=== PATIENT | female | born 1960 | race Caucasian/White ===

== ENCOUNTER 2025-06-04 09:16 | Inpatient (IN) | payer SELFPAY ==
[2025-06-04] VITALS (9 sets, daily range): BP systolic 100–127; BP diastolic 62–82; PULSE 95–100; RESP 18–22; TEMP 97.5–97.9; O2SAT 99–100
[~2025-06-04] VITALS: Ht 157.5 cm; Wt 102.1 kg
[2025-06-04] MEDS: IOHEXOL 350 MG/ML 100ML IJ ONE (09:46)
--- NOTE | 2025-06-04 09:50 | ED.PDOC ---
SOB-HPI HPI Comments HPI: This is a 64 year old female BIBA presenting to the ED with chief complaint of SOB. Patient reports that she has been experiencing SOB since Sunday, worsening over time. Patient relays that she started to develop this after being on a [address] EMS states patient's HR was elevated at 106 and O2 saturation was at 80% on RA, being placed on 15L O2, going up to 96%. Patient denies any chest pain, N/V, dizziness, fever, chills, or cough. Patient denies any recent surgeries, active bleeding, and notes she has normal stool color. Initial Vitals BP: 122/86 HR: 104 RR: 32 O2: 96% on 10L simple mask Temp: 98F Past Medical History: HTN, DM, GERD Past Surgical History: None Social History: Denies ETOH, smoking, and drug use. Medications: None Allergies: NKDA HPI: Poor Historian. REVIEW OF SYSTEMS: CONSTITUTIONAL: Denies acute: fever, diaphoresis, chills, HEAD: Denies acute: headache, photophobia Eyes: Denies acute: Double vision, vision loss, eye pain, eye discharge. EARS: Denies acute: tinnitus, hearing loss, ear discharge, ear pain, THROAT: Denies acute: sore throat, swelling, difficulty swallowing , pain with swallowing, change in voice. NECK: Denies acute: neck pain, neck swelling, stiff neck. HEART: Denies acute : chest pain, palpitations, LUNGS: Denies acute: wheezing, cough, hemoptysis ABDOMEN: Denies acute: abdominal pain, Nausea, Vomiting, diarrhea, melena , hematemesis, hematochezia SKIN: Denies acute: rash, redness, lesions, itchiness. EXTREMITIES: Denies acute: calf pain, numbness, tingling, weakness, denies pain in extremity. Denies acute: Low back pain. Neuro: Denies acute: focal neurological deficit, motor or sensory focal neurological deficit, tremors, seizure like activity, confusion, dizziness, change in mental status, loss of bowel or bladder function, cauda equina like symptoms. : Denies acute: dysuria, hematuria, flank pain, increase in urinary frequency. PSYCH: Denies acute: hallucination, suicidal ideation, homicidal ideation. FEMALE: Denies acute: abnormal vaginal bleeding, foul odor, unusual discharge. PHYSICAL EXAM: General: ----moderate to severe----acute distress, awake and alert. Head: normocephalic, atraumatic. Neck: supple, trachea is midline, no swelling. Throat: Normal phonation. Eyes:, no erythema, no purulent discharge, no proptosis, no icterus. Heart: regular tachycardia, no significant murmur appreciated. Lungs: apparent respiratory distress, No wheezing, no rhonchi, no crackles. No stridors Abdomen: non tender to palpation, non distended, soft, no guarding, no rebound, + bowel sounds. Obese Neuro: Awake, Alert, oriented to name, self, situation, follows commands GCS=15. Speech is normal. Skin: no petechia, no purpura, no cyanosis, non-pale, not jaundice. Lower extremities: --no - Pitting edema no deformity, no focal swelling, no calf TTP. Makes eye contact. moves all four extremities. Face: no apparent facial droop. ED COURSE: DISCLAIMER: This medical document was created using an electronic medical record system with voice recognition software and computerized dictation system. Although this document has been carefully reviewed, there might still be some phonetic and typographical errors. Occasional wrong-word or "sound-alike" substitutions may have occurred due to the inherent limitations of voice recognition software. These areas are purely typographical due to imperfections of the software programs and do not reflect any compromise in the patient's medical care. Please read the chart carefully and recognize, using context, where these substitutions have occurred. Chief Complaint: Shortness of Breath Time Seen by MD: 09:46 Reviewed notes: Medications, Allergies Information Source: Patient, Emergency Med Personnel Mode of Arrival: EMS Was a procedure done? Was a procedure done?: No Differential Dx Differential Diagnosis: Other (DDx include ACS, unstable angina, anxiety, PE, pneumothroax, neoplasm, cardiac ischemia, COPD, asthma, CHF, pleural effusion, tobacco abuse, pneumonia, hypoxia, hypercapnia, anemia., infection/sepsis., pulmonary edema. Asthma, Cardiac tamponade, infection.) X-Ray, Labs, Meds, VS Vital Signs Date Time Temp Pulse Resp B/P (MAP) Pulse Ox O2 Delivery O2 Flow Rate FiO2 06/04/25 12:00 102 25 129/89 (102) 06/04/25 12:00 101 06/04/25 11:01 Simple Mask* 10 99 06/04/25 11:00 105 27 109/76 (87) 06/04/25 10:00 97.7 105 32 129/84 (99) 97.7 06/04/25 09:48 97.7 107 34 150/59 (89) 97.7 06/04/25 09:45 Simple Mask* 10 99 06/04/25 09:22 98.0 102 32 126/88 96 98.0 06/04/25 09:21 104 Lab Test 06/04/25 10:56 06/04/25 09:32 Range/Units Prothrombin Time 11.2 10.9 9.3-11.8 sec Prothrombin Time INR 1.06 1.03 0.9-1.15 Activated Partial Thromboplast Time 21.1 L 23.1 L 24.5-34.5 SEC Troponin I High Sensitivity 198 *H 123 *H </=34 ng/L White Blood Count 15.3 H 4.4-10.8 10^3/uL Red Blood Count 5.13 4.0-5.20 10^6/uL Hemoglobin 12.1 L 12.2-16.2 g/dL Hematocrit 38.8 36.0-46.0 % Mean Corpuscular Volume 75.5 L 80.0-100.0 fL Mean Corpuscular Hemoglobin 23.5 L 28.0-32.0 pg Mean Corpuscular Hemoglobin Concent 31.2 L 32.0-36.0 g/dL Red Cell Distribution Width 16.9 H 11.8-14.3 % Platelet Count 217 140-450 10^3/uL Mean Platelet Volume 10.0 6.9-10.8 fL Neutrophils (%) (Auto) 65.9 37.0-80.0 % Lymphocytes (%) (Auto) 25.4 10.0-50.0 % Monocytes (%) (Auto) 6.8 0.0-12.0 % Eosinophils (%) (Auto) 1.3 0.0-7.0 % Basophils (%) (Auto) 0.6 0.0-2.0 % Neutrophils # (Auto) 10.1 H 1.6-8.6 10 ^3/uL Lymphocytes # (Auto) 3.9 0.4-5.4 10 ^3/uL Monocytes # (Auto) 1.0 0-1.3 10 ^3/uL Eosinophils # (Auto) 0.2 0-0.8 10 ^3/uL Basophils # (Auto) 0.1 0-0.2 10 ^3/uL Nucleated Red Blood Cells 0.0 % Sodium Level 139 136-145 mmol/L Potassium Level 3.7 3.5-5.1 mmol/L Chloride Level 106 98-107 mmol/L Carbon Dioxide Level 20 20-31 mmol/L Anion Gap 13 5-15 Blood Urea Nitrogen 14 9-23 mg/dL Creatinine 1.12 H 0.550-1.02 mg/dL Glomerular Filtration Rate Calc 56 >90 mL/min BUN/Creatinine Ratio 12.5 10.0-20.0 Serum Glucose 278 H 74-106 mg/dL Calcium Level 9.3 8.7-10.4 mg/dL Magnesium Level 1.9 1.6-2.6 mg/dL Total Bilirubin 0.5 0.2-1.0 mg/dL Aspartate Amino Transferase (AST) 25 13-40 U/L Alanine Aminotransferase (ALT) 33 7-40 U/L Alkaline Phosphatase 88 46-116 U/L B-Type Natriuretic Peptide 212.75 0-100 pg/mL Total Protein 7.1 5.7-8.2 g/dL Albumin 4.8 3.2-4.8 g/dL [place] [id number] Ph: [phone] DIAGNOSTIC IMAGING Diagnostic Imaging Report : [id number] Signed PATIENT: DON FISHMAN ACCT: [id number] UNIT: [id number] : 1960 LOC: ER ROOM / BED: / AGE / SEX: 64 / F ADM STATUS: REG ER SERVICE [id number] ORDERING PHYSICIAN: BINH COREY DO PROCEDURE(s): CTACH - CT ANGIO CHEST CONTRAST REASON: sob ORDER NUMBER(s): [id number], ACCESSION NUMBER(s): [id number] CTA Chest with intravenous contrast INDICATION: sob COMPARISON: None TECHNIQUE: Multidetector spiral CTA of the chest was performed of the chest with intravenous contrast. PULMONARY ANGIOGRAPHY PROTOCOL was utilized using a bolus- tracking technique centered on the main pulmonary artery. Axial, coronal and sagittal multiplanar and MIP reformats were performed. CONTRAST: Type of contrast: Omni 350 Contrast injected: 70 ml Radiation dose : Chest: CTDI volume is 28 mGy. Dose-length product is 1050 mGy*cm The dose indicators for CT are the volume computed Tomography (CT) dose Index (CTDIvol) and the dose Length product (DLP), and are measured in units of mGy and mGy-cm, respectively. These indicators are not patient dose, but values generated from the CT scanner acquisition factors. The report includes radiation exposure data for exposures received during this examination. Findings: Pulmonary artery: Massive bilateral pulmonary emboli. Large volume of clot. Evidence of right heart strain. Lower neck: Normal thyroid. Lungs: Mild patchy ground-glass opacities in both lungs. Atelectasis and scarring in the lung bases. Heart/Vascular Structures: Normal heart size. No pericardial effusion. Lymph Nodes: No adenopathy Pleura: No pleural effusion or significant pneumothorax. Musculoskeletal: No acute osseous abnormality. Soft tissues: Normal. Upper abdomen: Moderate size sliding-type hiatal hernia. IMPRESSION: 1. Massive bilateral pulmonary emboli. Large clot burden. Evidence of right heart strain. Clinical correlation and continued follow-up is recommended. 2. Patchy ground-glass opacities in both lungs could represent subsegmental atelectasis. Atelectasis and scarring in the lung bases. Clinical correlation and continued follow-up is recommended. 3. Moderate size sliding-type hiatal hernia. Critical Result: Pumonary Emboli Findings conveyed to the referring physician by the Radiology academic support specialist at 06/04/2025 10:39 AM, and acknowledged receipt and understanding of the findings. HS:Y ATED BY: CHEMA VILLEDA MD DICTATED DATE/TIME: 06/04/25 104 SIGNED BY: CHEMA VILLEDA MD SIGNED DATE/TIME: 06/04/25 1041 CC: X-Ray, Labs, Meds, VS Comment 1028: Spoke with interventional radiologist in person regarding the patient case and he is aware of the patient and will likely take patient to filling station laborer for clot removal. Time of 1ST Reevaluation: 10:46 Reevaluation 1ST: Unchanged Patient Education/Counseling: Diagnosis, Treatment Family Education/Counseling: No Family Present Comments MDM: patient presented with the above HPI.---respiratory distress---workup was initiated. patient was found with the above mentioned diagnosis. the following medications were ordered: please refer to order lists of meds and tests obtained by myself Dr. Corey. Patient ED course and VS have been stabilized. Patient has been reassessed in the ED and remained in a stable condition. Pertinent incidental findings were discussed with the patient and/or family. Patient/family voices understanding and is agreeable with plan. Patient has been observed in the ED adequate length of time to insure improvement/stability. Escalation of care considered: Consideration of escalation to observation or admission Patient was taken immediately to CT angiogram of the chest to rule out PE. Patient was started on anticoagulation. I discussed the case with the interventional radiologist who will take the patient to the filling station laborer for clot removal. Patient was ADMITTED to the medicine team for further evaluation and treatment of their presentation. All the reports of any imaging studies that were ordered by myself were reviewed by myself. Departure 1 Departure Time of Disposition: 10:31 Impression: Primary Impression: Acute respiratory distress Additional Impressions: Pulmonary embolus Leukocytosis Elevated troponin Disposition: ADMITTED INPATIENT Admit to: Tele Condition: Guarded Discharged With: Self Critical Care Note Critical Care Time?: Yes (90 min-critical care time only) I personally scribed for BINH COREY DO ([email or web address]) on 06/04/25 at 09:50. Electronically submitted by Irwin Lazo ([email or web address]). I personally scribed for BINH COREY DO ([email or web address]) on 06/04/25 at 10:22. Electronically submitted by Irwin Lazo ([email or web address]). I personally scribed for BINH COREY DO ([email or web address]) on 06/04/25 at 10:29. Electronically submitted by Irwin Lazo ([email or web address]). I personally scribed for BINH COREY DO ([email or web address]) on 06/04/25 at 10:32. Electronically submitted by Irwin Lazo ([email or web address]). I personally scribed for BINH COREY DO ([email or web address]) on 06/04/25 at 11:25. Electronically submitted by Irwin Lazo ([email or web address]). BINH COREY DO Jun 04, 2025 09:50
--- NOTE | 2025-06-04 09:59 | DVH ---
CHEST RADIOGRAPH Indication: sob Technique: Single frontal view of the chest was obtained COMPARISON: None FINDINGS: Lines and Tubes: None Lungs: Clear Pleura: No effusion. No pneumothorax. Cardiomediastinal contours: Unremarkable Bones: Unremarkable IMPRESSION: 1. No acute disease.
[2025-06-04 10:02] LABS: Chloride 106 mmol/L (98-107); Potassium 3.7 mmol/L (3.5-5.1); Sodium 139 mmol/L (136-145)
[2025-06-04 10:08] LABS: Calcium 9.3 mg/dL (8.7-10.4)
[2025-06-04 10:09] LABS: Anion Gap 13 (5-15); Carbon Dioxide 20 mmol/L (20-31); Hematocrit 38.8 % (36.0-46.0); Hemoglobin 12.1 g/dL (12.2-16.2); Mean Corpuscular Hemoglobin 23.5 pg (28.0-32.0); Mean Corpuscular Volume 75.5 fL (80.0-100.0); Nucleated Red Blood Cells % 0.0 %
[2025-06-04 10:13] LABS: Alkaline Phosphatase 88 U/L (46-116); Magnesium 1.9 mg/dL (1.6-2.6)
[2025-06-04 10:14] LABS: Alanine Aminotransferase 33 U/L (7-40); Albumin 4.8 g/dL (3.2-4.8)
[2025-06-04 10:16] LABS: Glucose 278 mg/dL (74-106)
[2025-06-04] MEDS ORDERED: ENOXAPARIN SOD 100 MG/1 ML SYRINGE SC ONE (10:30)
[2025-06-04 10:31] LABS: BUN/Creatinine Ratio 12.5 (10.0-20.0); Blood Urea Nitrogen 14 mg/dL (9-23); Total Protein 7.1 g/dL (5.7-8.2)
[2025-06-04 10:33] LABS: Bilirubin, Total 0.5 mg/dL (0.2-1.0)
--- NOTE | 2025-06-04 10:42 | DVH ---
CTA Chest with intravenous contrast INDICATION: sob COMPARISON: None TECHNIQUE: Multidetector spiral CTA of the chest was performed of the chest with intravenous contrast . PULMONARY ANGIOGRAPHY PROTOCOL was utilized using a bolus-tracking technique centered on the main p ulmonary artery. Axial, coronal and sagittal multiplanar and MIP reformats were performed. CONTRAST: Type of contrast: Omni 350 Contrast injected: 70 ml Radiation dose : Chest: CTDI volume is 28 mGy. Dose-length product is 1050 mGy*cm The dose indicators for CT are the volume computed Tomography (CT) dose Index (CTDIvol) and the dose Length product (DLP), and are measured in units of mGy and mGy-cm, respectively. These indicators are not patient dose, but values generated from the CT scanner acquisition factors. The report includes radiation exposure data for exposures received during this examination. Findings: Pulmonary artery: Massive bilateral pulmonary emboli. Large volume of clot. Evidence of right heart strain. Lower neck: Normal thyroid. Lungs: Mild patchy ground-glass opacities in both lungs. Atelectasis and scarring in the lung bases. Heart/Vascular Structures: Normal heart size. No pericardial effusion. Lymph Nodes: No adenopathy Pleura: No pleural effusion or significant pneumothorax. Musculoskeletal: No acute osseous abnormality. Soft tissues: Normal. Upper abdomen: Moderate size sliding-type hiatal hernia. IMPRESSION: 1. Massive bilateral pulmonary emboli. Large clot burden. Evidence of right heart strain. Clinical correlation and continued follow-up is recommended. 2. Patchy ground-glass opacities in both lungs could represent subsegmental atelectasis. Atelectasis and scarring in the lung bases. Clinical correlation and continued follow-up is recommended. 3. Moderate size sliding-type hiatal hernia. Critical Result: Pumonary Emboli Findings conveyed to the referring physician by the Radiology user support analyst supervisor at 06/04/2025 10:39 AM, a nd acknowledged receipt and understanding of the findings. HS:Y
[2025-06-04] MEDS: HEPARIN SODIUM (PORCINE) 5000 UNITS/ML 1ML VIAL IV ONE (10:52)
[2025-06-04] MEDS: cefTRIAXone 1GM/50ML D5W 50 ML IV ONE (10:52)
[2025-06-04 11:43] LABS: INR 1.03 (0.9-1.15); Partial Thromboplastin Time 23.1 SEC (24.5-34.5); Prothrombin Time 10.9 sec (9.3-11.8)
[2025-06-04 11:51] LABS: INR 1.06 (0.9-1.15); Partial Thromboplastin Time 21.1 SEC (24.5-34.5); Prothrombin Time 11.2 sec (9.3-11.8)
[2025-06-04] MEDS ORDERED: NITROGLYCERIN 0.4 MG SL TAB SL PRN ×2 (13:00→17:00)
[2025-06-04] MEDS ORDERED: ONDANSETRON HCL 4 MG/2 ML VIAL IV PRN (13:00)
[2025-06-04] MEDS ORDERED: MORPHINE SULFATE INJ 2 MG/ml SYRG IV PRN ×2 (13:00→17:00)
[2025-06-04] MEDS ORDERED: DOCUSATE SOD 100 MG CAP PO PRN (13:00)
--- NOTE | 2025-06-04 13:18 | DVHHP2 ---
History of Present Illness Reason for Visit: Shortness of the breath History of Present Illness 64-year-old female past medical history hypertension diabetes occurs no surgical history chief complaint patient states she has been short of breath since Sunday. She did state she recently went on a trip for [facility] way back to [place] she had been in the car where she was able to get up and walk some but she stated she started having shortness of the breath since Sunday her sats on room air was 80% when she arrived she was heart rate was 120 they put her on non-rebreather mask she came up to 98% on room air patient denies any history of blood clots in the past but she does have a daughter who has history of blood clots in his currently on blood thinners when evaluating patient's labs and imaging from ED heparin was given ceftriaxone Lovenox white count was 15.3 glucose was 278 otherwise CBC and CMP unremarkable troponin was positive BNP was 212th 2.75 CT angio measures bilateral PE large clot burden with right heart strain she also has patchy ground-glass infiltrates in both lungs which I will start antibiotics for pneumonia patient will be 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 We will admit to [facility] Past Medical History See HPI above Past Surgical History See HPI above Family History Reviewed, non-contributory to the management of this case. Past Social History The patient lives at home, denies smoking, alcohol or illicit drugs abuse. Review of Systems Constitutional: No: Fever, Chills, Sweats, Weakness, Malaise, Other Eyes: No: Pain, Vision change, Conjunctivae inflammation, Eyelid inflammation, Other, Redness ENT: No: Ear pain, Ear discharge, Nose pain, Nose discharge, Nose congestion, Mouth pain, Mouth swelling, Throat pain, Throat swelling, Other Respiratory: Shortness of breath, SOB with excertion; No: Cough, Dry, Wheezing, Hemoptysis, Pleuritic Pain, Sputum, Wheezing, Other Cardiovascular: No: Chest Pain, Palpitations, Orthopnea, Paroxysmal Noc. Dyspnea, Edema, Lt Headedness, Other Gastrointestinal: No: Nausea, Vomiting, Abdominal Pain, Diarrhea, Constipation, Melena, Hematochezia, Other Genitourinary: No Dysuria, No Frequency, No Incontinence, No Hematuria, No Retention, No Other Musculoskeletal: No: other, neck pain, shoulder pain, arm pain, back pain, hand pain, leg pain, foot pain Skin: No: Rash, Lesions, Jaundice, Bruising, Other Neurological: No: Weakness, Numbness, Incoordination, Change in speech, Confusion, Seizures, Other Allergies: Coded Allergies: NO KNOWN ALLERGIES (Unverified , 06/04/25) Medications Current Medications Medications Dose Ordered Sig/Luisa Route Start Time Stop Time Status Last Admin Dose Admin Ondansetron HCl 4 mg Q4HP PRN IV 06/04/25 13:00 UNV Docusate Sodium 100 mg BIDPRN PRN PO 06/04/25 13:00 UNV Morphine Sulfate 2 mg Q4HPRN PRN IV 06/04/25 13:00 UNV Nitroglycerin 0.4 mg Q5MINP PRN SL 06/04/25 13:00 UNV Heparin Sodium/ Dextrose 250 ml @ 18.81 mls/ hr [id number] IV 06/04/25 13:00 UNV Exam Vital Signs Vital Signs Date Time Temp Pulse Resp B/P (MAP) Pulse Ox O2 Delivery O2 Flow Rate FiO2 06/04/25 12:00 101 06/04/25 11:01 Simple Mask* 10 99 06/04/25 09:48 97.7 34 150/59 (89) 97.7 06/04/25 09:22 96 General Appearance: Alert, Oriented X3, Cooperative, mild distress HEENT: Atraumatic, PERRLA, EOMI, Mucous membr. moist/pink Respiratory: Clear to auscultation, Normal air movement Cardiovascular: Regular rate, Normal S1, Normal S2, No murmurs Abdominal: Normal bowel sounds, Soft, No tenderness, No hepatospenomegaly Extremities: No clubbing, No cyanosis, No edema, Normal pulses, No tenderness/swelling Skin: No rashes, No breakdown, No significant lesion Neuro: Normal gait, Normal speech, Strength at 5/5 X4 ext, Normal tone, Sensation intact, Cranial nerves 3-12 NL Psych/Mental Status: Mental status NL, Mood NL Labs/Xrays CT scan of the chest shows patchy ground-glass in both lungs patient found to have a large clot burden with right heart strain I reviewed labs, imaging CT scan abdomen pelvis, EKG and all diagnostic studies on this patient from ED records and the medical chart Chest x-ray unremarkable Labs Test 06/04/25 10:56 06/04/25 09:32 Range/Units Prothrombin Time 11.2 9.3-11.8 sec Prothrombin Time INR 1.06 0.9-1.15 Activated Partial Thromboplast Time 21.1 L 24.5-34.5 SEC Troponin I High Sensitivity 198 *H </=34 ng/L White Blood Count 15.3 H 4.4-10.8 10^3/uL Red Blood Count 5.13 4.0-5.20 10^6/uL Hemoglobin 12.1 L 12.2-16.2 g/dL Hematocrit 38.8 36.0-46.0 % Mean Corpuscular Volume 75.5 L 80.0-100.0 fL Mean Corpuscular Hemoglobin 23.5 L 28.0-32.0 pg Mean Corpuscular Hemoglobin Concent 31.2 L 32.0-36.0 g/dL Red Cell Distribution Width 16.9 H 11.8-14.3 % Platelet Count 217 140-450 10^3/uL Mean Platelet Volume 10.0 6.9-10.8 fL Neutrophils (%) (Auto) 65.9 37.0-80.0 % Lymphocytes (%) (Auto) 25.4 10.0-50.0 % Monocytes (%) (Auto) 6.8 0.0-12.0 % Eosinophils (%) (Auto) 1.3 0.0-7.0 % Basophils (%) (Auto) 0.6 0.0-2.0 % Neutrophils # (Auto) 10.1 H 1.6-8.6 10 ^3/uL Lymphocytes # (Auto) 3.9 0.4-5.4 10 ^3/uL Monocytes # (Auto) 1.0 0-1.3 10 ^3/uL Eosinophils # (Auto) 0.2 0-0.8 10 ^3/uL Basophils # (Auto) 0.1 0-0.2 10 ^3/uL Nucleated Red Blood Cells 0.0 % Sodium Level 139 136-145 mmol/L Potassium Level 3.7 3.5-5.1 mmol/L Chloride Level 106 98-107 mmol/L Carbon Dioxide Level 20 20-31 mmol/L Anion Gap 13 5-15 Blood Urea Nitrogen 14 9-23 mg/dL Creatinine 1.12 H 0.550-1.02 mg/dL Glomerular Filtration Rate Calc 56 >90 mL/min BUN/Creatinine Ratio 12.5 10.0-20.0 Serum Glucose 278 H 74-106 mg/dL Calcium Level 9.3 8.7-10.4 mg/dL Magnesium Level 1.9 1.6-2.6 mg/dL Total Bilirubin 0.5 0.2-1.0 mg/dL Aspartate Amino Transferase (AST) 25 13-40 U/L Alanine Aminotransferase (ALT) 33 7-40 U/L Alkaline Phosphatase 88 46-116 U/L B-Type Natriuretic Peptide 212.75 0-100 pg/mL Total Protein 7.1 5.7-8.2 g/dL Albumin 4.8 3.2-4.8 g/dL SEPSIS Sepsis Screen Date sepsis recognized/suspect: Jun 04, 2025 Time Sepsis recognized/suspect: 944 Recent Procedure: No On Antibiotic Therapy: No Respiratory Rate >20: Yes Heart Rate >90: Yes Temp<36 C (96.8 F) or >38.3 C: No SBP <90 or MAP <65 mmHG: No New Acute Mental Status Change: No Is the patient on CPAP, BIPAP,: No Physician Orders Char Puller (06/04/25 ) Urinalysis (06/04/25 09:28) Chest Portable (06/04/25 09:31) Electrocardigram (06/04/25 09:28) Ct Angio Chest Contrast (06/04/25 09:31) Troponin-I Hs (06/04/25 12:28) * Radiologist Consult (06/04/25 10:19) Vte Protocol Initiated (06/04/25 10:36) Heparin Per Standardized Proce (06/04/25 10:36) Discontinue All Im Injections (06/04/25 10:36) Admit (06/04/25 12:55) Allergies (06/04/25 12:55) Code Status (06/04/25 12:55) Ondansetron Hcl (Zofran) (06/04/25 13:00) Docusate Sodium Capsule (Colace Capsule) (06/04/25 13:00) Complete Blood Count (06/05/25 04:00) Comprehensive Metabolic Panel (06/05/25 04:00) Npo (Nothing By Mouth) Diet (06/04/25 Lunch) Echo 2d Mode Cardiac Dop (06/04/25 12:55) Condition: Critical (06/04/25 12:55) Maintain Bed Rest (06/04/25 12:55) Morphine Sulfate Injection (06/04/25 13:00) Nitroglycerin Sublingual (Ntrostat Subli (06/04/25 13:00) Stat Ekg For Chest Pain (06/04/25 12:55) Notify Md Of Changes From Base (06/04/25 12:55) Program Director/Morning Show Host For 24 Hours (06/04/25 12:55) Emergency Dysrhythmia Protocol (06/04/25 12:55) Rhythm Strips Once Every Shift (06/04/25 12:55) Oxygen By Nasal Cannula (06/04/25 12:55) Platelet Monitoring (06/04/25 12:55) PTPTT (06/04/25 12:55) Complete Blood Count (06/04/25 12:55) Heparin Drip/D5w 100units/Ml (06/04/25 13:00) * Cardiology Consult (06/04/25 12:55) Vital Signs Date Time Temp Pulse Resp B/P (MAP) Pulse Ox O2 Delivery O2 Flow Rate FiO2 06/04/25 12:00 101 06/04/25 11:01 Simple Mask* 10 99 06/04/25 09:48 97.7 107 34 150/59 (89) 97.7 06/04/25 09:45 Simple Mask* 10 99 06/04/25 09:22 98.0 102 32 126/88 96 98.0 06/04/25 09:21 104 Laboratory Tests Test 06/04/25 09:32 White Blood Count 15.3 10^3/uL (4.4-10.8) H Medications Medications Dose Ordered Sig/Luisa Route Start Time Stop Time Status Last Admin Dose Admin Ceftriaxone Sodium 50 ml @ 100 mls/hr ONCE ONCE IV 06/04/25 10:30 06/04/25 10:59 DC 06/04/25 10:52 100 MLS/HR Heparin Sodium (Porcine) 5,000 units ONCE ONCE IV 06/04/25 10:45 06/04/25 10:46 DC 06/04/25 10:52 5,000 UNITS Assessment/Plan Assessment/Plan acute pulmonary embolism with large clot burden with right heart strain Found on CTA of the chest pt was given dose of lovenox but Heparin protocol was ordered PTT every 6 hours Monitor for bleeding Order echo to check heart strain Follow-up results cards consult fu recs Order Doppler bilateral lower extremity rule out DVT Monitor for respiratory distress Keep sats greater than 92% cont non rebreather mask Rounding team can consider anti coag workup acute pna ordered ceftraxone and doxy for now acute luekocytosis likely from pna vs pe ordered blood cultures fu results cont ceftriaxone and doxy acute elevation in trop likley from righ heart strain for pe trend trops ordered echo fu results ordered cards consult fu results acute elevation in bnp likely from heart strain from pe monitor chronic problems htn gerds dm ISS fen/ppx heparin hl protonix no scd until dvt ruled out plan admit to [facility] for evaluation Plan discussed with: Patient My Orders Orders - INA FLANAGAN DNP Procedure Category Date Status Time Admit ADMIT 06/04/25 Transmitted 12:55 Allergies PRO 06/04/25 In Process 12:55 Code Status CODE 06/04/25 Transmitted 12:55 Ondansetron Hcl PHA 06/04/25 Logged (Zofran) 13:00 Docusate Sodium PHA 06/04/25 Logged Capsule (Colace 13:00 Complete Blood Count LAB 06/05/25 Verified 04:00 Comprehensive LAB 06/05/25 Verified Metabolic Panel 04:00 Npo (Nothing By DIET 06/04/25 Transmitted Mouth) Diet Lunch Echo 2d Mode Cardiac US 06/04/25 Logged DOP 12:55 Condition: Critical PRO 06/04/25 In Process 12:55 Maintain Bed Rest PRO 06/04/25 In Process 12:55 Morphine Sulfate PHA 06/04/25 Logged Injection 13:00 Nitroglycerin PHA 06/04/25 Logged Sublingual (Ntrostat 13:00 Stat Ekg For Chest PRO 06/04/25 In Process Pain 12:55 Notify Of Changes PRO 06/04/25 In Process From Base 12:55 Program Director/Morning Show Host For PRO 06/04/25 In Process 24 Hours 12:55 Emergency Dysrhythmia PRO 06/04/25 In Process Protocol 12:55 Rhythm Strips Once PRO 06/04/25 In Process Every Shift 12:55 Oxygen By Nasal RT 06/04/25 Transmitted Cannula 12:55 Platelet Monitoring PRO 06/04/25 In Process 12:55 PTPTT LAB 06/04/25 Logged 12:55 Complete Blood Count LAB 06/04/25 Logged 12:55 Heparin Drip/D5w PHA 06/04/25 Logged 100units/Ml 13:00 * Cardiology Consult CONS 06/04/25 Transmitted 12:55 Date of Service: Jun 04, 2025 Billing Provider: INA FLANAGAN DNP Common Visit Codes: 23610-[id number] INP/OBS CARE (HIGH), [id number] CARE 30- 74 MIN (Total critical care time: Approximately 45 minutes This critical care time included obtaining a history; examining the patient; pulse oximetry; ordering and review of studies; arranging urgent treatment with development of a management plan; evaluation of patient's response to treatment; frequent reassessment; and, discussions with other providers.) INA FLANAGAN DNP Jun 04, 2025 13:18
[2025-06-04] MEDS ORDERED: cefTRIAXone 1GM/50ML D5W 50 ML IV ONE (13:30)
[2025-06-04 13:54] LABS: INR 1.05 (0.9-1.15); Partial Thromboplastin Time 27.6 SEC (24.5-34.5); Prothrombin Time 11.1 sec (9.3-11.8)
--- NOTE | 2025-06-04 14:25 | DVH ---
Bilateral lower extremity venous duplex Clinical History: eval for dvt Comparison: None Findings: Duplex Doppler evaluation of the deep venous systems of both lower extremities from the common femora l veins to the popliteal veins including color Doppler and spectral/pulsed waveform analysis was perf ormed. RIGHT SIDE: The common femoral vein demonstrates appropriate compressibility and waveform variability. There is compressibility/patency of the great saphenous vein at the proximal thigh. The femoral vein demonstrates appropriate compressibility and waveform variability. The deep femoral vein demonstrates appropriate compressibility and waveform variability. The popliteal vein demonstrates appropriate compressibility and waveform variability. DVT seen in right lower extremity peroneal veins LEFT SIDE: The common femoral vein demonstrates appropriate compressibility and waveform variability. There is compressibility/patency of the great saphenous vein at the proximal thigh. The femoral vein demonstrates appropriate compressibility and waveform variability. The deep femoral vein demonstrates appropriate compressibility and waveform variability. The popliteal vein demonstrates appropriate compressibility and waveform variability. There is normal compressibility at the tibioperoneal trunk. IMPRESSION: DVT seen in right lower extremity peroneal veins No DVT left lower extremity. END IMPRESSION: If clinical concern/symptoms persist or worsen, short-interval follow-up study is suggested. Critical Result: DVT Findings discussed with KENN Stanford , at 06/04/2025 02:22 PM, and acknowledged receipt and understandin g of the findings. ..
[2025-06-04] MEDS: LIDOCAINE 2%HCL (LOCAL ANESTH.) INJ 20ML MDV ONE (14:27)
[2025-06-04 14:32] LABS: Hematocrit 36.9 % (36.0-46.0); Hemoglobin 11.7 g/dL (12.2-16.2); Mean Corpuscular Hemoglobin 23.7 pg (28.0-32.0); Mean Corpuscular Volume 74.7 fL (80.0-100.0); Nucleated Red Blood Cells % 0.1 %
[2025-06-04] MEDS: MIDAZOLAM HCL 2MG/2ML 2ml VIAL (1mg/ml) ONE (14:53)
[2025-06-04] MEDS: HEPARIN SODIUM (PORCINE) 5000 UNITS/ML 1ML VIAL ONE ×3 (14:53→16:04)
[2025-06-04] MEDS: fentaNYL CITRATE 100 MCG/2 ML VL ONE (14:53)
[2025-06-04] MEDS: HEPARIN 1,000 UNITS/ml 1ML VIAL ONE ×2 (15:26→15:46)
[2025-06-04] MEDS: IODIXANOL 320MG/ML 100ML BTL IV ONE (15:54)
[2025-06-04] MEDS: HEPARIN DRIP/D5W 100UNITS/ML 250 ML IV ONE (17:04)
[2025-06-04] MEDS: HEPARIN DRIP/D5W 100UNITS/ML 250 ML IV SCH (17:16)
[2025-06-04] MEDS: DOXYCYCLINE 100MG/100ML 100 ML IV ONE (17:27)
--- NOTE | 2025-06-04 17:33 | DVH ---
PROCEDURE: Pulmonary angiography and interventions Procedural Personnel Attending physician(s): Tee Chaparro Fellow physician(s): None Resident physician(s): None Advanced practice provider(s): None Pre-procedure diagnosis: Intermediate high risk pulmonary embolus Post-procedure diagnosis: Same Indication: Dyspnea Additional clinical history: None Complications: No immediate complications. IMPRESSION: Angiography of the bilateral main pulmonary arteries demonstrates mild residual clot burden involving the left upper lobe and right upper lobe segmental pulmonary arteries following large bore mechanica l thrombectomy. Plan: Right lower extremity straight x6 hours; continue therapeutic anticoagulation with plan towards bridg e to oral anticoagulation. Removal of suture mediated device on 06/05/2025. PROCEDURE SUMMARY: - Venous access with ultrasound guidance - Bilateral main pulmonary angiography - Superselective pulmonary angiography: Performed as described below - Pulmonary arterial interventions as described below - Additional procedure(s): None PROCEDURE DETAILS: Pre-procedure Consent: Informed consent for the procedure including risks, benefits and alternatives was obtained a nd time-out was performed prior to the procedure. Preparation: The site was prepared and draped using maximal sterile barrier technique including cutan eous antisepsis. Anesthesia/sedation Level of anesthesia/sedation: Moderate sedation (conscious sedation) Anesthesia/sedation administered by: Independent trained observer under attending supervision with co ntinuous monitoring of the patient s level of consciousness and physiologic status Total intra-service sedation time (minutes): 90 Access Local anesthesia was administered. The vessel was sonographically evaluated and determined to be pena nt. Real time ultrasound was used to visualize needle entry into the vessel and a permanent image was stored. A 24 hebrew sheath was placed. Vein accessed: Right common femoral vein Access technique: Micropuncture set with 21 gauge needle Pulmonary angiography and interventions The pulmonary arterial system was catheterized using 6 hebrew angled pigtail catheter, 5 hebrew multi purpose angled catheter, 035 amplatz wire, 035 glidewire advantage. Indication for angiography: Diagnostic angiography - There was no prior catheter-based angiographic s tudy available and a full diagnostic study was performed. The decision to intervene was based on the diagnostic study. Vessel catheterized: Left main pulmonary artery Findings: Mild residual clot burden of the left upper lobe segmental arteries Selective vessel catheterized: Left lower lobe pulmonary artery Findings: Intraluminal position with surrounding thrombus Vessel catheterized: Right main pulmonary artery Findings: Mild residual clot burden of the left upper lobe segmental arteries Selective vessel catheterized: Right lower lobe pulmonary artery Findings: Intraluminal position with surrounding thrombus Thrombectomy Mechanical thrombectomy location: left lower lobe, right interlobar, right truncus anterior Mechanical thrombectomy device: [id number] and [id number] Mechanical thrombectomy type: Aspiration Post-intervention angiography: Mild residual clot burden of the bilateral upper lobe segmental arteri es Pressure measurements Pressure measurements were obtained via multi-sidehole catheter. Location of pressure measurement: Main pulmonary artery - Systolic pressure (mmHg): 47 pre, 48 post - Diastolic pressure (mmHg): 24 pre, 8 post - Mean pressure (mmHg): 35 pre, 28 post Closure The sheath was removed and hemostasis was achieved. Venous closure technique: Purse string suture and manual compression Contrast Contrast agent: Visipaque 320 Contrast volume (mL): 90 Radiation Dose Fluoroscopy time (mm:ss): 32:48 Reference air kerma (mGy): 681 Kerma area product (Gy-cm2): 97.27 Additional Details Additional description of procedure: None Registry event: None/3/g Device used: None Equipment details: None Unique Device Identifiers: Not available Specimens removed: None Estimated blood loss (mL): Less than 10 Standardized report: [email or web address] Attestation Signer name: Tee Chaparro I attest that I was present for the entire procedure. I reviewed the stored images and agree with the report as written.
--- NOTE | 2025-06-04 23:35 | DVHINCON2 ---
Date of service: Jun 04, 2025 Referring Physician Connor Reason for Consultation Acute PE History of Present Illness This is a 64 year old female with a PMH of HTN, DM, GERD who presented to the ED with a complaint of worsening SOB x 6 days. Patient notes that she started to develop SOB after being on a [address] from [facility] to [place]. EMS states patient's HR was elevated at 106 and O2 saturation was at 80% on RA, being placed on 15L O2, going up to 96%. WBC 12.8, SPEECH AND LANGUAGE CLINICIAN 1.12, TROP 123 > 198 > 292. Chest x-ray shows NAD. CTA Chest revealed a massive bilateral pulmonary emboli. Large clot burden. Evidence of right heart strain, patchy ground-glass opacities in both lungs could represent subsegmental atelectasis, atelectasis and scarring in the lung bases and moderate size sliding-type hiatal hernia. Bilateral lower extremity venous duplex shows a DVT seen in right lower extremity peroneal veins. No DVT left lower extremity. Patient was admitted to the hospital. I am asked to consult on this patient. Allergies: Coded Allergies: NO KNOWN ALLERGIES (Unverified , 06/04/25) Current Medications Current Medications Medications (Trade) Dose Ordered Sig/Luisa Route PRN Reason Start Time Stop Time Status Last Admin Ondansetron HCl (Zofran) 4 mg Q4HP PRN IV NAUSEA / VOMITING 06/04/25 13:00 Docusate Sodium (Colace Capsule) 100 mg BIDPRN PRN PO FOR CONSTIPATION 06/04/25 13:00 Morphine Sulfate 2 mg Q4HPRN PRN IV SEVERE PAIN (7-10 PAIN SCALE) 06/04/25 13:00 Nitroglycerin (Ntrostat Sublingual) 0.4 mg Q5MINP PRN SL FOR CHEST PAIN 06/04/25 13:00 06/04/25 17:17 DC Heparin Sodium/ Dextrose 250 ml @ 19 mls/hr [id number] IV 06/04/25 14:00 06/04/25 17:16 Ceftriaxone Sodium 50 ml @ 100 mls/hr DAILY@09 IV 06/05/25 09:00 Doxycycline Hyclate 100 ml @ 50 mls/hr Q12H IV 06/05/25 05:30 Nitroglycerin (Ntrostat Sublingual) 0.4 mg Q5MINP PRN SL FOR CHEST PAIN 06/04/25 17:00 Morphine Sulfate 2 mg Q30M PRN IV FOR CHEST PAIN 06/04/25 17:00 Review of Systems Constitutional: No: Fever, Chills, Sweats, Weakness, Malaise, Other Eyes: No: Pain, Vision change, Conjunctivae inflammation, Eyelid inflammation, Other, Redness ENT: No: Ear pain, Ear discharge, Nose pain, Nose discharge, Nose congestion, Mouth pain, Mouth swelling, Throat pain, Throat swelling, Other Respiratory: Shortness of breath, SOB with excertion; No: Cough, Dry, Wheezing, Hemoptysis, Pleuritic Pain, Sputum, Wheezing, Other Cardiovascular: No: Chest Pain, Palpitations, Orthopnea, Paroxysmal Noc. Dyspnea, Edema, Lt Headedness, Other Gastrointestinal: No: Nausea, Vomiting, Abdominal Pain, Diarrhea, Constipation, Melena, Hematochezia, Other Genitourinary: No Dysuria, No Frequency, No Incontinence, No Hematuria, No Retention, No Other Musculoskeletal: No: other, neck pain, shoulder pain, arm pain, back pain, hand pain, leg pain, foot pain Skin: No: Rash, Lesions, Jaundice, Bruising, Other Neurological: No: Weakness, Numbness, Incoordination, Change in speech, Confusion, Seizures, Other Vital Signs Vital Signs Date Time Temp Pulse Resp B/P (MAP) Pulse Ox O2 Delivery O2 Flow Rate FiO2 06/04/25 18:53 Simple Mask* 6 50 06/04/25 18:53 97.7 98 18 127/79 (95) 100 97.7 Physical Exam GENERAL: Alert and oriented x 3. No acute distress. EYES: PERRL, EOMI. Anicteric. HENT: Moist mucous membranes. LUNGS: Decreased breath sounds. CARDIOVASCULAR: Regular rate and rhythm. ABDOMEN: Soft, nontender and nondistended. EXTREMITIES: No edema. NEUROLOGIC: No focal neurological deficits. SKIN: Warm, dry. Labs/Diagnostic Data Labs Test 06/04/25 14:03 06/04/25 13:12 06/04/25 09:32 Range/Units White Blood Count 12.8 H 4.4-10.8 10^3/uL Red Blood Count 4.94 4.0-5.20 10^6/uL Hemoglobin 11.7 L 12.2-16.2 g/dL Hematocrit 36.9 36.0-46.0 % Mean Corpuscular Volume 74.7 L 80.0-100.0 fL Mean Corpuscular Hemoglobin 23.7 L 28.0-32.0 pg Mean Corpuscular Hemoglobin Concent 31.8 L 32.0-36.0 g/dL Red Cell Distribution Width 17.0 H 11.8-14.3 % Platelet Count 201 140-450 10^3/uL Mean Platelet Volume 10.7 6.9-10.8 fL Neutrophils (%) (Auto) 86.9 H 37.0-80.0 % Lymphocytes (%) (Auto) 7.4 L 10.0-50.0 % Monocytes (%) (Auto) 4.9 0.0-12.0 % Eosinophils (%) (Auto) 0.2 0.0-7.0 % Basophils (%) (Auto) 0.6 0.0-2.0 % Neutrophils # (Auto) 11.1 H 1.6-8.6 10 ^3/uL Lymphocytes # (Auto) 1.0 0.4-5.4 10 ^3/uL Monocytes # (Auto) 0.6 0-1.3 10 ^3/uL Eosinophils # (Auto) 0 0-0.8 10 ^3/uL Basophils # (Auto) 0.1 0-0.2 10 ^3/uL Nucleated Red Blood Cells 0.1 % Prothrombin Time 11.1 9.3-11.8 sec Prothrombin Time INR 1.05 0.9-1.15 Activated Partial Thromboplast Time 27.6 24.5-34.5 SEC Troponin I High Sensitivity 292 *H </=34 ng/L Sodium Level 139 136-145 mmol/L Potassium Level 3.7 3.5-5.1 mmol/L Chloride Level 106 98-107 mmol/L Carbon Dioxide Level 20 20-31 mmol/L Anion Gap 13 5-15 Blood Urea Nitrogen 14 9-23 mg/dL Creatinine 1.12 H 0.550-1.02 mg/dL Glomerular Filtration Rate Calc 56 >90 mL/min BUN/Creatinine Ratio 12.5 10.0-20.0 Serum Glucose 278 H 74-106 mg/dL Calcium Level 9.3 8.7-10.4 mg/dL Magnesium Level 1.9 1.6-2.6 mg/dL Total Bilirubin 0.5 0.2-1.0 mg/dL Aspartate Amino Transferase (AST) 25 13-40 U/L Alanine Aminotransferase (ALT) 33 7-40 U/L Alkaline Phosphatase 88 46-116 U/L B-Type Natriuretic Peptide 212.75 0-100 pg/mL Total Protein 7.1 5.7-8.2 g/dL Albumin 4.8 3.2-4.8 g/dL Assessment Acute pulmonary embolism with large clot burden with right heart strain. RLE DVT. Pneumonia. Leukocytosis. Elevated troponin. Elevated BNP. HTN. DM. HLD. Plan/Recommendation I agree with your ongoing assessment and care of plan. IV antibiotics as ordered. Heparin drip per pharmacy. Morphine for pain management. Nitro SL. Additional plan as per the hospital course. A total of 45 minutes was spent reviewing the patient record, examining the patient, making a diagnostic and therapeutic plan, discussing this plan with medical personnel, following up on diagnostic studies and following the patient for clinical stability excluding any and all procedures. At least 50% of this time was spent in direct, [id number] contact. Plan discussed with: Patient EVELYN MULLINS MD Jun 04, 2025 21:01
[2025-06-04 23:43] LABS: INR 1.11 (0.9-1.15); Prothrombin Time 11.6 sec (9.3-11.8)
[2025-06-04 23:45] LABS: Partial Thromboplastin Time 107.5 SEC (24.5-34.5)
[2025-06-05] VITALS (8 sets, daily range): BP systolic 104–128; BP diastolic 59–72; PULSE 72–94; RESP 17–20; TEMP 97.5–98.5; O2SAT 95–100
[2025-06-05] MEDS: HEPARIN DRIP/D5W 100UNITS/ML 250 ML IV SCH (01:00)
[2025-06-05] MEDS: DOXYCYCLINE 100MG/100ML 100 ML IV SCH (06:11)
[2025-06-05 06:16] LABS: Hematocrit 31.9 % (36.0-46.0); Hemoglobin 10.1 g/dL (12.2-16.2); Mean Corpuscular Hemoglobin 23.7 pg (28.0-32.0); Mean Corpuscular Volume 75.2 fL (80.0-100.0); Nucleated Red Blood Cells % 0.0 %
[2025-06-05 06:19] LABS: Alanine Aminotransferase 23 U/L (7-40); Albumin 3.9 g/dL (3.2-4.8); Alkaline Phosphatase 72 U/L (46-116); Anion Gap 8 (5-15); BUN/Creatinine Ratio 18.8 (10.0-20.0); Blood Urea Nitrogen 19 mg/dL (9-23); Carbon Dioxide 28 mmol/L (20-31); Chloride 106 mmol/L (98-107); Potassium 4.3 mmol/L (3.5-5.1); Sodium 142 mmol/L (136-145); Total Protein 6.0 g/dL (5.7-8.2)
[2025-06-05 06:20] LABS: Bilirubin, Total 0.4 mg/dL (0.2-1.0)
[2025-06-05 06:30] LABS: Calcium 8.5 mg/dL (8.7-10.4); Glucose 178 mg/dL (74-106); INR 1.08 (0.9-1.15); Partial Thromboplastin Time 64.7 SEC (24.5-34.5); Prothrombin Time 11.4 sec (9.3-11.8)
[2025-06-05] MEDS: cefTRIAXone 1GM/50ML D5W 50 ML IV SCH (09:25)
[2025-06-05 13:57] LABS: INR 1.06 (0.9-1.15); Partial Thromboplastin Time 52.5 SEC (24.5-34.5); Prothrombin Time 11.2 sec (9.3-11.8)
[2025-06-05] MEDS: PANTOPRAZOLE 40 MG TAB PO ONE (16:12)
--- NOTE | 2025-06-05 19:37 | DVHPNRES ---
Progress Note Date Seen: Jun 05, 2025 Resident Creating Document: ALESSIA ELLISON Medical Necessity Reason Pt with a Central, PICC or Fol: No Subjective Review of Systems 64-year-old female with past medical history of hypertension, diabetes, sinusitis, plantar fasciitis hospital with chief complaint of chest pain. The pain was graded 9/10 in severity with no radiation exacerbated by exercise and relieved by resting. It was associated with shortness of breath and leg pain. She had a history of long road trips for the past few weeks and long journey flight recently. On arrival the hospital her oxygen saturation was 80% after which he was put on oxygen saturation increased to 98%. Doppler showed right lower limb DVT in the peroneal vein. CT angiography showed massive pulmonary emboli and sliding hiatal hernia. Arterial thrombectomy of the pulmonary arteries were done. Patient seen at bedside in the morning. Patient says chest pain subsided. Patient was started on warfarin because of the low cost, patient did not have insurance. Was bridged with heparin. Follow platelets PMHx:hypertension, diabetes, sinusitis, plantar fasciitis Family history: History of clotting disorder in the daughter Social history: No history of smoking alcohol or recreational drug use Allergic history: None General: patient denies fever, fatigue, weaknes, sweating, any recent changes in appetite and weight HEENT: No headaches, visiual changes, hearing loss, tinnitus, nasal congestion and discharge, and sore throat. Cardiovascular: Complaints of mild chest pain, palpitations, dyspnea on exertion, orthopnea, or claudication. Respiratory: No cough, and wheezing. Gastrointestinal: Denies nausea, vomiting, dysphagia, odynophagia, heartburn, abdominal pain, flatulence, bloating, diarrhea, constipation, change in stool, or blood in stool. Genitourinary: No dysuria, hematuria, discharge, frequency, urgency, nocturia, incontinence, and urinary retention. Endocrine: No heat or cold intolerance, polydipsia, polyuria, and polyphagia. Neurological: No dizziness, extremity weakness and numbness, tremors, gait disturbance, seizures, and memory impairment. Psychiatric: Denies depression, anxiety,or insomnia. Musculoskeletal: Mild Swelling in the right lower limb, Denies neck pain, stiffness, back pain, muscle weakness, , stiffness, or limited range of motion. Skin: No rashes, itching, skin lesion, changes in hair, nail, skin texture and breast. Hematologic/Lymphatic: Denies easy bruising, bleeding tendencies, or lymph node enlargement. Objective vital signs Vital Sign Date Time Temp Pulse Resp B/P (MAP) Pulse Ox O2 Delivery O2 Flow Rate FiO2 06/05/25 13:00 98.4 88 19 117/72 (87) 97 98.4 06/04/25 20:00 Simple Mask* 6 50 Total Intake and Output 06/04/25 06/04/25 06/05/25 15:00 23:00 07:00 Intake Total 19 ml 340 ml Balance 19 ml 340 ml medications Current Medications Medications Dose Ordered Sig/Luisa Route Start Time Stop Time Status Last Admin Dose Admin Ondansetron HCl 4 mg Q4HP PRN IV 06/04/25 13:00 Docusate Sodium 100 mg BIDPRN PRN PO 06/04/25 13:00 Morphine Sulfate 2 mg Q4HPRN PRN IV 06/04/25 13:00 Ceftriaxone Sodium 50 ml @ 100 mls/hr DAILY@09 IV 06/05/25 09:00 06/05/25 09:25 100 MLS/HR Doxycycline Hyclate 100 ml @ 50 mls/hr Q12H IV 06/05/25 05:30 06/05/25 06:11 50 MLS/HR Nitroglycerin 0.4 mg Q5MINP PRN SL 06/04/25 17:00 Morphine Sulfate 2 mg Q30M PRN IV 06/04/25 17:00 Heparin Sodium/ Dextrose 250 ml @ 16 mls/hr [id number] IV 06/05/25 01:00 06/05/25 08:19 16 MLS/HR Omeprazole 20 mg DAILY PO 06/05/25 20:00 06/08/25 19:59 UNV Examination General Appearance: Alert, Oriented X3, Cooperative, No acute distress HEENT: Atraumatic, PERRLA, EOMI, Mucous membrane moist/pink Respiratory: Clear to auscultation, Normal air movement Cardiovascular: Regular rate, Normal S1, Normal S2, No murmurs, no chest wall tenderness Abdominal: Normal bowel sounds, Soft, No tenderness, No hepatospenomegaly, No masses Extremities: No clubbing, No cyanosis, Mild tenderness & edema in b/l lower limbs, Normal pulses Skin: No rashes, No breakdown, No significant lesion Neuro: Normal gait, Normal speech, Strength at 5/5 X4 ext, Normal tone, Sensation intact, Cranial nerves 3-12 NL, Reflexes 2+ Psych/Mental Status: Mental status NL, Mood NL laboratory and microbiology Laboratory Tests 06/05/25 05:39 Test 06/05/25 05:39 Range/Units Serum Glucose 178 H 74-106 mg/dL Problem List/Assessment/Plan Problem List/Assessment/Plan Massive pulmonary embolism with large clot burden with right heart strain. CTA of the chest Heparin drip Post Arterial thrombectomy by IR RLE DVT in peroneal vein. Doppler bilateral lower extremity Essential HTN. Type 2 DM. Hyperlipidemia acute luekocytosis likely from pna vs pe on ceftriaxone and doxy acute elevation in bnp likely from heart strain from pe GERD on omeprazole plantar fascitis sinusitis Moderate size sliding-type hiatal hernia DIET: Cardiac diet DVT PROPHYLAXIS: Warfarin GI PROPHYLAXIS:: Pantoprazole CODE STATUS: Goal of care discussed for more than 18 minutes, full code DISPOSITION: Med/surge Patient's status and plan discussed with the patient. Case discussed with Dr. Lagos Plan discussed with: Patient, Daughter My Orders My Orders Orders - ALESSIA ELLISON Procedure Category Date Status Time Omeprazole-Sodium PHA 06/05/25 Logged Bicarbonate (Omeprazol 14:45 Omeprazole-Sodium PHA 06/05/25 Logged Bicarbonate (Omeprazol 20:00 Dietary Evaluation Review Comments: [facility] 2. Educated pt and family that a Cardiac diet does nt allow much cheese, she has to choose beans and rice for her protein source, accommondate her likes and dislikes, Expected Outcomes/Goals: gradual wt loss Date of Service: Jun 05, 2025 Billing Provider: KARLI LAGOS MD Common Visit Codes: [id number] INP/OBS CARE(HIGH) ALESSIA ELLISON Jun 05, 2025 15:11 KARLI LAGOS MD Jun 05, 2025 23:45
[2025-06-05 20:13] LABS: INR 1.05 (0.9-1.15); Partial Thromboplastin Time 52.1 SEC (24.5-34.5); Prothrombin Time 11.1 sec (9.3-11.8)
--- NOTE | 2025-06-05 20:24 | DVHPN2 ---
Progress Note - Dictate Date Seen: Jun 05, 2025 Medical Necessity Reason Pt with a Central, PICC or Fol: No Subjective Patient was seen and evaluated in follow up. Patient is complaining of generalized pain. Patient is on 6 L via simple mask. Patient on heparin drip. Telemetry reviewed. vital signs Vital Sign Date Time Temp Pulse Resp B/P (MAP) Pulse Ox O2 Delivery O2 Flow Rate FiO2 06/05/25 09:00 98.5 72 20 118/59 (78) 97 98.5 06/04/25 20:00 Simple Mask* 6 50 Total Intake and Output 06/04/25 06/04/25 06/05/25 15:00 23:00 07:00 Intake Total 19 ml 340 ml Balance 19 ml 340 ml medications Current Medications Medications Dose Ordered Sig/Luisa Route Start Time Stop Time Status Last Admin Dose Admin Ondansetron HCl 4 mg Q4HP PRN IV 06/04/25 13:00 Docusate Sodium 100 mg BIDPRN PRN PO 06/04/25 13:00 Morphine Sulfate 2 mg Q4HPRN PRN IV 06/04/25 13:00 Ceftriaxone Sodium 50 ml @ 100 mls/hr DAILY@09 IV 06/05/25 09:00 06/05/25 09:25 100 MLS/HR Doxycycline Hyclate 100 ml @ 50 mls/hr Q12H IV 06/05/25 05:30 06/05/25 06:11 50 MLS/HR Nitroglycerin 0.4 mg Q5MINP PRN SL 06/04/25 17:00 Morphine Sulfate 2 mg Q30M PRN IV 06/04/25 17:00 Heparin Sodium/ Dextrose 250 ml @ 16 mls/hr [id number] IV 06/05/25 01:00 06/05/25 08:19 16 MLS/HR objective GENERAL: Alert and oriented x 3. No acute distress. EYES: PERRL, EOMI. Anicteric. HENT: Moist mucous membranes. LUNGS: Decreased breath sounds. CARDIOVASCULAR: Regular rate and rhythm. ABDOMEN: Soft, nontender and nondistended. EXTREMITIES: No edema. NEUROLOGIC: No focal neurological deficits. SKIN: Warm, dry. laboratory and microbiology Laboratory Tests 06/05/25 05:39 Test 06/05/25 05:39 Range/Units Serum Glucose 178 H 74-106 mg/dL Problem List Acute pulmonary embolism with large clot burden with right heart strain. RLE DVT. Pneumonia. Leukocytosis. Elevated troponin. Elevated BNP. HTN. DM. HLD. Assessment/Plan Continued all current supportive medical care. IV antibiotics as ordered. Heparin drip per pharmacy. Morphine for pain management. Nitro SL. Additional plan as per the hospital course. Plan discussed with: Patient EVELYN MULLINS MD Jun 05, 2025 13:18
[2025-06-05] MEDS: WARFARIN SODIUM 5 MG TAB PO ONE (20:55)
[2025-06-06] VITALS (7 sets, daily range): BP systolic 112–133; BP diastolic 59–79; PULSE 80–94; RESP 15–20; TEMP 97.6–98.1; O2SAT 96–98
--- NOTE | 2025-06-06 01:15 | DVHSR ---
APPROVED REPORT EXAM: Two-dimensional and M-mode echocardiogram with Doppler and color Doppler. Blood Pressure: 128/69 mmHg INDICATION Eval for cardiac function and EF RISK FACTORS Height: 62, Weight: 231 DIMENSIONS LVDd4.4 (3.8-5.7cm)LA (2D)4.5 (1.9-4.0cm)Aortic Root3.2 (2.0-3.7cm) LVDs2.6 (2.5-4.0cm)LA (MM) (1.9-4.0cm)Aortic Cusp Exc1.7 (1.5-2.0cm) EF (%) 72.0 (55-70%)Rt. Atrium4.0 (1.9-4.0cm)Asc. Aorta cm IVSd1.5 (0.7-1.1cm)RV (D) (1.8-2.4cm) PWd1.2 (0.7-1.1cm) Mitral Valve MitralMitral Stenosis E wave0.80m/sMV Mean GR.mmHg A wave1.04m/sMV Peak GR.mmHg E/A ratio0.82D MVAcm2 DECEL [id number] 1/2 [id number] IVRTmsDop MVA3.47cm2 Aortic Valve Aortic ValveAortic Stenosis V11.35m/Truong Mean GR.12mmHg V22.41m/Truong Peak GR.23mmHg LVOT Diameter2.0 (1.8-2.4cm)Doppler AVA1.76cm2 Pulmonic Valve V21.09m/s Tricuspid Valve TR Velocity3.26m/s [id number] Other Information Technically limited study due to body habitus. Conclusion HYPERDYNAMIC LV LV EF IS 72% AND IS HIGH MODERATELY DILATED RV AND RA MODERATELY SEVERE PULMONARY HYPERTENSION RVSP IS 55 MM OF HG AND IS HIGH NORMAL VALVES AORTIC SCLEROSIS NO EFFUSION
[2025-06-06 07:16] LABS: Hematocrit 30.7 % (36.0-46.0); Hemoglobin 9.5 g/dL (12.2-16.2); Mean Corpuscular Hemoglobin 23.8 pg (28.0-32.0); Mean Corpuscular Volume 77.4 fL (80.0-100.0); Nucleated Red Blood Cells % 0.1 %
[2025-06-06 07:29] LABS: INR 1.04 (0.9-1.15); Partial Thromboplastin Time 58.6 SEC (24.5-34.5); Prothrombin Time 11.0 sec (9.3-11.8)
[2025-06-06] MEDS: PANTOPRAZOLE 40 MG TAB PO SCH (09:57)
--- NOTE | 2025-06-06 11:43 | DVHPN2 ---
Reviewed: Care Plan, H&P, Labs, Medications, Previous Orders, Radiology Changes from previous H/P or p: No Changes Eyes: No Pain, No Vision change, No Conjunctivae inflammation, No Eyelid inflammation, No Other, No Redness ENT: No Ear pain, No Ear discharge, No Nose pain, No Nose discharge, No Nose congestion, No Mouth pain, No Mouth swelling, No Throat pain, No Throat swelling, No Other Cardiovascular: No Chest Pain, No Palpitations, No Orthopnea, No Paroxysmal Noc. Dyspnea, No Edema, No Lt Headedness, No Other Respiratory: No Cough, No Dry; Shortness of breath, SOB with excertion; No Wheezing, No Hemoptysis, No Pleuritic Pain, No Sputum, No Other Gastrointestinal: No Nausea, No Vomiting, No Abdominal Pain, No Diarrhea, No Constipation, No Melena, No Hematochezia, No Other Genitourinary: No Dysuria, No Frequency, No Incontinence, No Hematuria, No Retention, No Other Musculoskeletal: No other, No neck pain, No shoulder pain, No arm pain, No back pain, No hand pain, No leg pain, No foot pain Skin: No Rash, No Lesions, No Jaundice, No Bruising, No Other Objective Vitals Vital Signs Date Time Temp Pulse Resp B/P (MAP) Pulse Ox O2 Delivery O2 Flow Rate FiO2 06/06/25 08:30 97.8 80 15 116/79 (91) 98 97.8 06/05/25 20:00 Simple Mask* 6 50 Intake/Output Intake and Output 06/06/25 07:00 Intake Total 1892 ml Balance 1892 ml Intake Oral 1700 ml IV Total 192 ml # Voids 2 Medications Current Medications Medications Dose Ordered Sig/Luisa Route Start Time Stop Time Status Last Admin Dose Admin Ondansetron HCl 4 mg Q4HP PRN IV 06/04/25 13:00 Docusate Sodium 100 mg BIDPRN PRN PO 06/04/25 13:00 Morphine Sulfate 2 mg Q4HPRN PRN IV 06/04/25 13:00 Ceftriaxone Sodium 50 ml @ 100 mls/hr DAILY@09 IV 06/05/25 09:00 06/06/25 10:00 100 MLS/HR Doxycycline Hyclate 100 ml @ 50 mls/hr Q12H IV 06/05/25 05:30 06/06/25 05:28 50 MLS/HR Nitroglycerin 0.4 mg Q5MINP PRN SL 06/04/25 17:00 Morphine Sulfate 2 mg Q30M PRN IV 06/04/25 17:00 Heparin Sodium/ Dextrose 250 ml @ 16 mls/hr [id number] IV 06/05/25 01:00 06/05/25 23:53 16 MLS/HR Pantoprazole Sodium 40 mg DAILY PO 06/06/25 10:00 06/06/25 09:57 40 MG Warfarin Sodium RX PROTOCOL PER PHARMACY PO 06/05/25 18:45 Laboratory Results Laboratory Tests 06/05/25 05:39 06/06/25 06:28 Coagulation Test 06/05/25 12:47 06/05/25 19:20 06/06/25 04:47 Prothrombin Time 11.2 sec (9.3-11.8) 11.1 sec (9.3-11.8) 11.0 sec (9.3-11.8) Prothrombin Time INR 1.06 (0.9-1.15) 1.05 (0.9-1.15) 1.04 (0.9-1.15) Activated Partial Thromboplast Time 52.5 SEC (24.5-34.5) H 52.1 SEC (24.5-34.5) H 58.6 SEC (24.5-34.5) H Labs and/or images reviewed: Labs reviewed by me, Image(s) reviewed by me Assessment/Plan Assessment/Plan Covering for resident physician Acute pulmonary embolism with large clot burden with right heart strain. Heparin Drip, transition to Coumadin, cardiology consult by Dr. Hirsch. Appreciated RLE DVT. Pneumonia. : Antibiotics Leukocytosis. Elevated troponin. Elevated BNP. HTN. DM. HLD. Time Spent 50 minutes Plan discussed with: Patient My Orders Orders - ROMÁN CAMILO MD Procedure Category Date Status Time * Pier Hand Helper CONS 06/06/25 Transmitted Consult Date of Service: Jun 06, 2025 Billing Provider: ROMÁN CAMILO MD Common Visit Codes: [id number] INP/OBS CARE(HIGH) ROMÁN CAMILO MD Jun 06, 2025 11:43
[2025-06-06] MEDS: WARFARIN SODIUM 5 MG TAB PO ONE (16:52)
--- NOTE | 2025-06-06 23:44 | DVHPN2 ---
Progress Note - Dictate Date Seen: Jun 06, 2025 Medical Necessity Reason Pt with a Central, PICC or Fol: No Subjective Patient was seen and evaluated in follow up. Patient is complaining of generalized discomfort. Patient is stable on 6 L via simple mask. HGB 9.5, HCT 30.7, PTT 58.6. Telemetry reviewed. vital signs Vital Sign Date Time Temp Pulse Resp B/P (MAP) Pulse Ox O2 Delivery O2 Flow Rate FiO2 06/06/25 08:30 97.8 80 15 116/79 (91) 98 97.8 06/05/25 20:00 Simple Mask* 6 50 Total Intake and Output 06/05/25 06/05/25 06/06/25 15:00 23:00 07:00 Intake Total 1092 ml 800 ml Balance 1092 ml 800 ml medications Current Medications Medications Dose Ordered Sig/Luisa Route Start Time Stop Time Status Last Admin Dose Admin Ondansetron HCl 4 mg Q4HP PRN IV 06/04/25 13:00 Docusate Sodium 100 mg BIDPRN PRN PO 06/04/25 13:00 Morphine Sulfate 2 mg Q4HPRN PRN IV 06/04/25 13:00 Ceftriaxone Sodium 50 ml @ 100 mls/hr DAILY@09 IV 06/05/25 09:00 06/06/25 10:00 100 MLS/HR Doxycycline Hyclate 100 ml @ 50 mls/hr Q12H IV 06/05/25 05:30 06/06/25 05:28 50 MLS/HR Nitroglycerin 0.4 mg Q5MINP PRN SL 06/04/25 17:00 Morphine Sulfate 2 mg Q30M PRN IV 06/04/25 17:00 Heparin Sodium/ Dextrose 250 ml @ 16 mls/hr [id number] IV 06/05/25 01:00 06/06/25 13:43 16 MLS/HR Pantoprazole Sodium 40 mg DAILY PO 06/06/25 10:00 06/06/25 09:57 40 MG Warfarin Sodium RX PROTOCOL PER PHARMACY PO 06/05/25 18:45 objective GENERAL: Alert and oriented x 3. No acute distress. EYES: PERRL, EOMI. Anicteric. HENT: Moist mucous membranes. LUNGS: Decreased breath sounds. CARDIOVASCULAR: Regular rate and rhythm. ABDOMEN: Soft, nontender and nondistended. EXTREMITIES: No edema. NEUROLOGIC: No focal neurological deficits. SKIN: Warm, dry. laboratory and microbiology Laboratory Tests 06/06/25 06:28 06/05/25 05:39 Test 06/05/25 05:39 Range/Units Serum Glucose 178 H 74-106 mg/dL Problem List Acute pulmonary embolism with large clot burden with right heart strain. RLE DVT. Pneumonia. Leukocytosis. Elevated troponin. Elevated BNP. HTN. DM. HLD. Assessment/Plan Continued all current supportive medical care. GI prophylactics. IV antibiotics as ordered. Heparin drip per pharmacy. Morphine for pain management. Nitro SL. Additional plan as per the hospital course. Dietary Evaluation Review Comments: [facility] Card[facility] Vegetarian [facility] 2. Educated pt and family that a Cardiac diet does nt allow much cheese, she has to choose beans and rice for her protein source, accommondate her likes and dislikes, Expected Outcomes/Goals: gradual wt loss Plan discussed with: Patient EVELYN MULLINS MD Jun 06, 2025 13:50
[2025-06-07] VITALS (8 sets, daily range): BP systolic 101–129; BP diastolic 56–81; PULSE 71–100; RESP 16–19; TEMP 97.8–98.3; O2SAT 97–100
[2025-06-07 06:56] LABS: Albumin 4.2 g/dL (3.2-4.8)
--- NOTE | 2025-06-07 10:43 | DVHPN2 ---
Reviewed: Care Plan, H&P, Labs, Medications, Previous Orders, Radiology Changes from previous H/P or p: No Changes Eyes: No Pain, No Vision change, No Conjunctivae inflammation, No Eyelid inflammation, No Other, No Redness ENT: No Ear pain, No Ear discharge, No Nose pain, No Nose discharge, No Nose congestion, No Mouth pain, No Mouth swelling, No Throat pain, No Throat swelling, No Other Cardiovascular: No Chest Pain, No Palpitations, No Orthopnea, No Paroxysmal Noc. Dyspnea, No Edema, No Lt Headedness, No Other Respiratory: No Cough, No Dry; Shortness of breath, SOB with excertion; No Wheezing, No Hemoptysis, No Pleuritic Pain, No Sputum, No Other Gastrointestinal: No Nausea, No Vomiting, No Abdominal Pain, No Diarrhea, No Constipation, No Melena, No Hematochezia, No Other Genitourinary: No Dysuria, No Frequency, No Incontinence, No Hematuria, No Retention, No Other Musculoskeletal: No other, No neck pain, No shoulder pain, No arm pain, No back pain, No hand pain, No leg pain, No foot pain Skin: No Rash, No Lesions, No Jaundice, No Bruising, No Other Objective Vitals Vital Signs Date Time Temp Pulse Resp B/P (MAP) Pulse Ox O2 Delivery O2 Flow Rate FiO2 06/07/25 09:00 98.1 71 16 111/63 (79) 100 98.1 06/07/25 08:00 Nasal Cannula* 5 40 Intake/Output Intake and Output 06/07/25 07:00 Intake Total 1952 ml Balance 1952 ml Intake Oral 1660 ml IV Total 292 ml # Voids 4 # Bowel Movements 1 Medications Current Medications Medications Dose Ordered Sig/Luisa Route Start Time Stop Time Status Last Admin Dose Admin Ondansetron HCl 4 mg Q4HP PRN IV 06/04/25 13:00 Docusate Sodium 100 mg BIDPRN PRN PO 06/04/25 13:00 Morphine Sulfate 2 mg Q4HPRN PRN IV 06/04/25 13:00 Ceftriaxone Sodium 50 ml @ 100 mls/hr DAILY@09 IV 06/05/25 09:00 06/07/25 09:12 100 MLS/HR Doxycycline Hyclate 100 ml @ 50 mls/hr Q12H IV 06/05/25 05:30 06/07/25 04:58 50 MLS/HR Nitroglycerin 0.4 mg Q5MINP PRN SL 06/04/25 17:00 Morphine Sulfate 2 mg Q30M PRN IV 06/04/25 17:00 Heparin Sodium/ Dextrose 250 ml @ 16 mls/hr [id number] IV 06/05/25 01:00 06/07/25 06:45 16 MLS/HR Pantoprazole Sodium 40 mg DAILY PO 06/06/25 10:00 06/07/25 09:11 40 MG Warfarin Sodium RX PROTOCOL PER PHARMACY PO 06/05/25 18:45 Laboratory Results Laboratory Tests 06/05/25 05:39 06/06/25 06:28 06/07/25 06:11 Chemistry Test 06/07/25 06:11 Albumin 4.2 g/dL (3.2-4.8) Labs and/or images reviewed: Labs reviewed by me, Image(s) reviewed by me Assessment/Plan Assessment/Plan Covering for resident physician Acute pulmonary embolism with large clot burden with right heart strain. Heparin Drip, transition to Coumadin, cardiology consult by Dr. Hirsch. Appreciated RLE DVT. Pneumonia. : Antibiotics Leukocytosis. Elevated troponin. Elevated BNP. HTN. DM. HLD. Time Spent 45 minutes No insurance: Social service consult Plan discussed with: Patient Date of Service: Jun 07, 2025 Billing Provider: ROMÁN CAMILO MD Common Visit Codes: [id number] INP/OBS CARE(HIGH) ROMÁN CAMILO MD Jun 07, 2025 10:43
[2025-06-07 10:53] LABS: Hematocrit 30.0 % (36.0-46.0); Hemoglobin 9.4 g/dL (12.2-16.2); Mean Corpuscular Hemoglobin 23.5 pg (28.0-32.0); Mean Corpuscular Volume 75.4 fL (80.0-100.0); Nucleated Red Blood Cells % 0.1 %
[2025-06-07 11:14] LABS: INR 1.14 (0.9-1.15); Partial Thromboplastin Time 57.1 SEC (24.5-34.5); Prothrombin Time 11.9 sec (9.3-11.8)
[2025-06-07] MEDS: WARFARIN SODIUM 5 MG TAB PO ONE (17:14)
[2025-06-07] MEDS: ACETAMINOPHEN 325 MG TAB PO PRN (22:43)
--- NOTE | 2025-06-07 23:51 | DVHPN2 ---
Progress Note - Dictate Date Seen: Jun 07, 2025 Medical Necessity Reason Pt with a Central, PICC or Fol: No Subjective Patient was seen and evaluated in follow up. Patient is complaining of generalized discomfort. Patient is now on 5 LPM NC. Patient is in sinus rhythm with bigeminal PAC's. HGB 9.4, HCT 30. Telemetry reviewed. vital signs Vital Sign Date Time Temp Pulse Resp B/P (MAP) Pulse Ox O2 Delivery O2 Flow Rate FiO2 06/07/25 09:00 98.1 71 16 111/63 (79) 100 98.1 06/07/25 08:00 Nasal Cannula* 5 40 Total Intake and Output 06/06/25 06/06/25 06/07/25 15:00 23:00 07:00 Intake Total 520 ml 732 ml 700 ml Balance 520 ml 732 ml 700 ml medications Current Medications Medications Dose Ordered Sig/Luisa Route Start Time Stop Time Status Last Admin Dose Admin Ondansetron HCl 4 mg Q4HP PRN IV 06/04/25 13:00 Docusate Sodium 100 mg BIDPRN PRN PO 06/04/25 13:00 Morphine Sulfate 2 mg Q4HPRN PRN IV 06/04/25 13:00 Ceftriaxone Sodium 50 ml @ 100 mls/hr DAILY@09 IV 06/05/25 09:00 06/07/25 09:12 100 MLS/HR Doxycycline Hyclate 100 ml @ 50 mls/hr Q12H IV 06/05/25 05:30 06/07/25 04:58 50 MLS/HR Nitroglycerin 0.4 mg Q5MINP PRN SL 06/04/25 17:00 Morphine Sulfate 2 mg Q30M PRN IV 06/04/25 17:00 Heparin Sodium/ Dextrose 250 ml @ 16 mls/hr [id number] IV 06/05/25 01:00 06/07/25 06:45 16 MLS/HR Pantoprazole Sodium 40 mg DAILY PO 06/06/25 10:00 06/07/25 09:11 40 MG Warfarin Sodium RX PROTOCOL PER PHARMACY PO 06/05/25 18:45 objective GENERAL: Alert and oriented x 3. No acute distress. EYES: PERRL, EOMI. Anicteric. HENT: Moist mucous membranes. LUNGS: Decreased breath sounds. CARDIOVASCULAR: Regular rate and rhythm. ABDOMEN: Soft, nontender and nondistended. EXTREMITIES: No edema. NEUROLOGIC: No focal neurological deficits. SKIN: Warm, dry. laboratory and microbiology Laboratory Tests 06/07/25 10:31 06/07/25 06:11 06/05/25 05:39 Test 06/05/25 05:39 Range/Units Serum Glucose 178 H 74-106 mg/dL Problem List Acute pulmonary embolism with large clot burden with right heart strain. RLE DVT. Pneumonia. Leukocytosis. Elevated troponin. Elevated BNP. HTN. DM. HLD. Assessment/Plan Continued all current supportive medical care. GI prophylactics. IV antibiotics as ordered. Heparin drip per pharmacy. Morphine for pain management. Nitro SL. Additional plan as per the hospital course. Dietary Evaluation Review Comments: [facility] 2. Educated pt and family that a Cardiac diet does nt allow much cheese, she has to choose beans and rice for her protein source, accommondate her likes and dislikes, Expected Outcomes/Goals: gradual wt loss Plan discussed with: Patient EVELYN MULLINS MD Jun 07, 2025 14:24
[2025-06-08] VITALS (7 sets, daily range): BP systolic 110–127; BP diastolic 54–71; PULSE 69–91; RESP 18–20; TEMP 97.6–98.4; O2SAT 90–99
[2025-06-08 08:12] LABS: INR 1.25 (0.9-1.15); Nucleated Red Blood Cells % 0.1 %; Prothrombin Time 13.0 sec (9.3-11.8)
[2025-06-08 08:15] LABS: Hematocrit 30.7 % (36.0-46.0); Hemoglobin 9.4 g/dL (12.2-16.2); Mean Corpuscular Hemoglobin 23.3 pg (28.0-32.0); Mean Corpuscular Volume 76.1 fL (80.0-100.0)
[2025-06-08 11:26] LABS: Prothrombin Time 13.0 sec (9.3-11.8)
[2025-06-08 11:27] LABS: INR 1.25 (0.9-1.15)
[2025-06-08 11:28] LABS: Partial Thromboplastin Time 85.2 SEC (24.5-34.5)
--- NOTE | 2025-06-08 11:55 | CONS ---
Pharmacy Clinical Information: HEPARIN DRIP, PULMONARY EMBOLISM PROTOCOL @0949 APTT 85.2 - NO BOLUS, DECREASE RATE TO 1400 UNITS/HR NEXT APTT DRAW SCHEDULED @1800 PER RX PROTOCOL CONFIRMED AND READ BACK WITH RN SHERRY MILLER [facility] RESIDENT Jun 08, 2025 11:55
[2025-06-08] MEDS: HEPARIN DRIP/D5W 100UNITS/ML 250 ML IV SCH ×2 (13:54→20:06)
--- NOTE | 2025-06-08 15:53 | DVHPNRES ---
Progress Note Date Seen: Jun 08, 2025 Resident Creating Document: ALESSIA ELLISON Medical Necessity Reason Pt with a Central, PICC or Fol: No Subjective Review of Systems Patient seen at the bedside. Patient is symptomatically better. INR - 1.25. Waiting for therapeutic range. Home oxygen evaluation pending Objective vital signs Vital Sign Date Time Temp Pulse Resp B/P (MAP) Pulse Ox O2 Delivery O2 Flow Rate FiO2 06/08/25 13:00 97.7 87 20 115/54 (74) 98 97.7 06/08/25 08:00 Nasal Cannula* 5 40 Total Intake and Output 06/07/25 06/07/25 06/08/25 15:00 23:00 07:00 Intake Total 1030 ml Balance 1030 ml medications Current Medications Medications Dose Ordered Sig/Luisa Route Start Time Stop Time Status Last Admin Dose Admin Ondansetron HCl 4 mg Q4HP PRN IV 06/04/25 13:00 Docusate Sodium 100 mg BIDPRN PRN PO 06/04/25 13:00 Morphine Sulfate 2 mg Q4HPRN PRN IV 06/04/25 13:00 Ceftriaxone Sodium 50 ml @ 100 mls/hr DAILY@09 IV 06/05/25 09:00 06/08/25 11:23 100 MLS/HR Doxycycline Hyclate 100 ml @ 50 mls/hr Q12H IV 06/05/25 05:30 06/08/25 05:31 50 MLS/HR Nitroglycerin 0.4 mg Q5MINP PRN SL 06/04/25 17:00 Morphine Sulfate 2 mg Q30M PRN IV 06/04/25 17:00 Pantoprazole Sodium 40 mg DAILY PO 06/06/25 10:00 06/08/25 08:46 40 MG Warfarin Sodium RX PROTOCOL PER PHARMACY PO 06/05/25 18:45 Acetaminophen 650 mg Q6HP PRN PO 06/07/25 22:30 06/08/25 11:20 650 MG Heparin Sodium/ Dextrose 250 ml @ 14 mls/hr [id number] IV 06/08/25 12:00 06/08/25 13:54 14 MLS/HR Examination General: patient denies fever, fatigue, weaknes, sweating, any recent changes in appetite and weight HEENT: No headaches, visiual changes, hearing loss, tinnitus, nasal congestion and discharge, and sore throat. Cardiovascular: Complaints of mild chest pain, palpitations, dyspnea on exertion, orthopnea, or claudication. Respiratory: No cough, and wheezing. Gastrointestinal: Denies nausea, vomiting, dysphagia, odynophagia, heartburn, abdominal pain, flatulence, bloating, diarrhea, constipation, change in stool, or blood in stool. Genitourinary: No dysuria, hematuria, discharge, frequency, urgency, nocturia, incontinence, and urinary retention. Endocrine: No heat or cold intolerance, polydipsia, polyuria, and polyphagia. Neurological: No dizziness, extremity weakness and numbness, tremors, gait disturbance, seizures, and memory impairment. Psychiatric: Denies depression, anxiety,or insomnia. Musculoskeletal: Mild Swelling in the right lower limb, Denies neck pain, stiffness, back pain, muscle weakness, , stiffness, or limited range of motion. Skin: No rashes, itching, skin lesion, changes in hair, nail, skin texture and breast. Hematologic/Lymphatic: Denies easy bruising, bleeding tendencies, or lymph node enlargement. laboratory and microbiology Laboratory Tests 06/08/25 06:04 06/07/25 06:11 06/05/25 05:39 Test 06/05/25 05:39 Range/Units Serum Glucose 178 H 74-106 mg/dL Problem List/Assessment/Plan Problem List/Assessment/Plan Massive pulmonary embolism with large clot burden with right heart strain. CTA of the chest Heparin drip Post Arterial thrombectomy by IR RLE DVT in peroneal vein. Doppler bilateral lower extremity Essential HTN. Type 2 DM. Hyperlipidemia acute luekocytosis likely from pna vs pe on ceftriaxone and doxy acute elevation in bnp likely from heart strain from pe GERD on omeprazole plantar fascitis sinusitis Moderate size sliding-type hiatal hernia DIET: Cardiac diet DVT PROPHYLAXIS: Warfarin GI PROPHYLAXIS:: Pantoprazole CODE STATUS: Goal of care discussed for more than 19 minutes, full code DISPOSITION: Med/surge Patient's status and plan discussed with the patient. Case discussed with Dr. Lagos Plan discussed with: Patient Dietary Evaluation Review Comments: [facility]. [facility] 2. Educated pt and family that a Cardiac diet does nt allow much cheese, she has to choose beans and rice for her protein source, accommondate her likes and dislikes, Expected Outcomes/Goals: gradual wt loss Date of Service: Jun 08, 2025 Billing Provider: KARLI LAGOS MD Common Visit Codes: [id number] INP/OBS CARE(HIGH) ALESSIA ELLISON RESIDENT Jun 08, 2025 15:53 KARLI LAGOS MD Jun 10, 2025 22:47
[2025-06-08] MEDS: WARFARIN SODIUM 2.5 MG TAB PO ONE (17:13)
[2025-06-08 18:47] LABS: INR 1.24 (0.9-1.15); Partial Thromboplastin Time 48.1 SEC (24.5-34.5); Prothrombin Time 12.9 sec (9.3-11.8)
--- NOTE | 2025-06-08 23:50 | DVHPN2 ---
Progress Note - Dictate Date Seen: Jun 08, 2025 Medical Necessity Reason Pt with a Central, PICC or Fol: No Subjective Patient was seen and evaluated in follow up. Patient is on 4 LPM NC. Patient is symptomatically better. HGB 9.4, HCT 30.7. INR - 1.25. Waiting for therapeutic range. Telemetry reviewed. vital signs Vital Sign Date Time Temp Pulse Resp B/P (MAP) Pulse Ox O2 Delivery O2 Flow Rate FiO2 06/08/25 21:00 98.4 81 18 127/71 (89) 99 98.4 06/08/25 20:00 Nasal Cannula* 4 36 Total Intake and Output 06/07/25 06/07/25 06/08/25 15:00 23:00 07:00 Intake Total 1030 ml Balance 1030 ml medications Current Medications Medications Dose Ordered Sig/Luisa Route Start Time Stop Time Status Last Admin Dose Admin Ondansetron HCl 4 mg Q4HP PRN IV 06/04/25 13:00 Docusate Sodium 100 mg BIDPRN PRN PO 06/04/25 13:00 Morphine Sulfate 2 mg Q4HPRN PRN IV 06/04/25 13:00 Ceftriaxone Sodium 50 ml @ 100 mls/hr DAILY@09 IV 06/05/25 09:00 06/08/25 11:23 100 MLS/HR Doxycycline Hyclate 100 ml @ 50 mls/hr Q12H IV 06/05/25 05:30 06/08/25 16:00 50 MLS/HR Nitroglycerin 0.4 mg Q5MINP PRN SL 06/04/25 17:00 Morphine Sulfate 2 mg Q30M PRN IV 06/04/25 17:00 Pantoprazole Sodium 40 mg DAILY PO 06/06/25 10:00 06/08/25 08:46 40 MG Warfarin Sodium RX PROTOCOL PER PHARMACY PO 06/05/25 18:45 Acetaminophen 650 mg Q6HP PRN PO 06/07/25 22:30 06/08/25 20:05 650 MG Heparin Sodium/ Dextrose 250 ml @ 16 mls/hr [id number] IV 06/08/25 20:00 06/08/25 20:06 16 MLS/HR objective GENERAL: Alert and oriented x 3. No acute distress. EYES: PERRL, EOMI. Anicteric. HENT: Moist mucous membranes. LUNGS: Decreased breath sounds. CARDIOVASCULAR: Regular rate and rhythm. ABDOMEN: Soft, nontender and nondistended. EXTREMITIES: No edema. NEUROLOGIC: No focal neurological deficits. SKIN: Warm, dry. laboratory and microbiology Laboratory Tests 06/08/25 06:04 06/07/25 06:11 06/05/25 05:39 Test 06/05/25 05:39 Range/Units Serum Glucose 178 H 74-106 mg/dL Problem List Acute pulmonary embolism with large clot burden with right heart strain. RLE DVT. Pneumonia. Leukocytosis. Elevated troponin. Elevated BNP. HTN. DM. HLD. Assessment/Plan Continued all current supportive medical care. IV antibiotics as ordered. Heparin drip per pharmacy. Morphine for pain management. GI prophylactics. Nitro SL. Additional plan as per the hospital course. Dietary Evaluation Review Comments: 1. [facility] Cardiac Vegetarian diet 2. Educated pt and family that a Cardiac diet does nt allow much cheese, she has to choose beans and rice for her protein source, accommondate her likes and dislikes, Expected Outcomes/Goals: gradual wt loss Plan discussed with: Patient EVELYN MULLINS MD Jun 08, 2025 23:50
[2025-06-09] VITALS (8 sets, daily range): BP systolic 111–149; BP diastolic 49–79; PULSE 75–87; RESP 17–20; TEMP 97.3–98.3; O2SAT 81–100
[2025-06-09 02:26] LABS: Hematocrit 27.0 % (36.0-46.0); Hemoglobin 8.4 g/dL (12.2-16.2); Nucleated Red Blood Cells % 0.1 %
[2025-06-09 02:27] LABS: Mean Corpuscular Hemoglobin 23.7 pg (28.0-32.0); Mean Corpuscular Volume 75.9 fL (80.0-100.0)
[2025-06-09 10:25] LABS: INR 1.42 (0.9-1.15); Partial Thromboplastin Time 57.3 SEC (24.5-34.5); Prothrombin Time 14.5 sec (9.3-11.8)
--- NOTE | 2025-06-09 11:11 | CONS ---
Pharmacy Clinical Information: HEPARIN DRIP, PULMONARY EMBOLISM PROTOCOL @0930 APTT 57.3 - NO BOLUS, NO CHANGE NEXT APTT DRAW SCHEDULED @1630 PER RX PROTOCOL CONFIRMED AND READ BACK WITH RN DENIS LUND PHARMACIST Jun 09, 2025 11:11
[2025-06-09 14:59] LABS: Base Excess 1.7 mmol/L (-2.0-3.0)
[2025-06-09 16:14] LABS: INR 1.45 (0.9-1.15); Partial Thromboplastin Time 70.0 SEC (24.5-34.5); Prothrombin Time 14.8 sec (9.3-11.8)
--- NOTE | 2025-06-09 16:54 | CONS ---
Pharmacy Clinical Information: HEPARIN DRIP, PULMONARY EMBOLISM PROTOCOL @1526 APTT 70.0 - NO BOLUS, NO CHANGE NEXT APTT DRAW SCHEDULED @0500 PER RX PROTOCOL CONFIRMED AND READ BACK WITH RN DENIS LUND PHARMACIST Jun 09, 2025 16:54
[2025-06-09] MEDS: WARFARIN SODIUM 5 MG TAB PO ONE (16:55)
--- NOTE | 2025-06-09 18:57 | DVHPNRES ---
Progress Note Date Seen: Jun 09, 2025 Resident Creating Document: ALESSIA ELLISON Medical Necessity Reason Pt with a Central, PICC or Fol: No Subjective Review of Systems Patient seen at bedside. Tried taking ABG from the patient yesterday but unable to. We will try again today. Waiting for INR to be in therapeutic range. Objective vital signs Vital Sign Date Time Temp Pulse Resp B/P (MAP) Pulse Ox O2 Delivery O2 Flow Rate FiO2 06/09/25 17:00 98.2 85 20 149/79 (102) 81 98.2 06/08/25 20:00 Nasal Cannula* 4 36 Total Intake and Output 06/08/25 06/08/25 06/09/25 15:00 23:00 07:00 Intake Total 1050 ml 800 ml Balance 1050 ml 800 ml medications Current Medications Medications Dose Ordered Sig/Luisa Route Start Time Stop Time Status Last Admin Dose Admin Ondansetron HCl 4 mg Q4HP PRN IV 06/04/25 13:00 Docusate Sodium 100 mg BIDPRN PRN PO 06/04/25 13:00 Morphine Sulfate 2 mg Q4HPRN PRN IV 06/04/25 13:00 Ceftriaxone Sodium 50 ml @ 100 mls/hr DAILY@09 IV 06/05/25 09:00 06/09/25 11:11 100 MLS/HR Doxycycline Hyclate 100 ml @ 50 mls/hr Q12H IV 06/05/25 05:30 06/09/25 16:40 50 MLS/HR Nitroglycerin 0.4 mg Q5MINP PRN SL 06/04/25 17:00 Morphine Sulfate 2 mg Q30M PRN IV 06/04/25 17:00 Pantoprazole Sodium 40 mg DAILY PO 06/06/25 10:00 06/09/25 11:11 40 MG Warfarin Sodium RX PROTOCOL PER PHARMACY PO 06/05/25 18:45 Acetaminophen 650 mg Q6HP PRN PO 06/07/25 22:30 06/09/25 16:40 650 MG Heparin Sodium/ Dextrose 250 ml @ 16 mls/hr [id number] IV 06/08/25 20:00 06/09/25 11:15 16 MLS/HR Examination General: patient denies fever, fatigue, weaknes, sweating, any recent changes in appetite and weight HEENT: No headaches, visiual changes, hearing loss, tinnitus, nasal congestion and discharge, and sore throat. Cardiovascular: Complaints of mild chest pain, palpitations, dyspnea on exertion, orthopnea, or claudication. Respiratory: No cough, and wheezing. Gastrointestinal: Denies nausea, vomiting, dysphagia, odynophagia, heartburn, abdominal pain, flatulence, bloating, diarrhea, constipation, change in stool, or blood in stool. Genitourinary: No dysuria, hematuria, discharge, frequency, urgency, nocturia, incontinence, and urinary retention. Endocrine: No heat or cold intolerance, polydipsia, polyuria, and polyphagia. Neurological: No dizziness, extremity weakness and numbness, tremors, gait disturbance, seizures, and memory impairment. Psychiatric: Denies depression, anxiety,or insomnia. Musculoskeletal: Mild Swelling in the right lower limb, Denies neck pain, stiffness, back pain, muscle weakness, , stiffness, or limited range of motion. Skin: No rashes, itching, skin lesion, changes in hair, nail, skin texture and breast. Hematologic/Lymphatic: Denies easy bruising, bleeding tendencies, or lymph node enlargement. laboratory and microbiology Laboratory Tests 06/09/25 02:01 06/07/25 06:11 06/05/25 05:39 Test 06/05/25 05:39 Range/Units Serum Glucose 178 H 74-106 mg/dL Problem List/Assessment/Plan Problem List/Assessment/Plan Massive pulmonary embolism with large clot burden with right heart strain. CTA of the chest Heparin drip Post Arterial thrombectomy by IR RLE DVT in peroneal vein. Doppler bilateral lower extremity Essential HTN. Type 2 DM. Hyperlipidemia acute luekocytosis likely from pna vs pe on ceftriaxone and doxy acute elevation in bnp likely from heart strain from pe GERD on omeprazole plantar fascitis sinusitis Moderate size sliding-type hiatal hernia DIET: Cardiac diet DVT PROPHYLAXIS: Warfarin GI PROPHYLAXIS:: Pantoprazole CODE STATUS: Goal of care discussed for more than 23 minutes, full code DISPOSITION: Med/surge Patient's status and plan discussed with the patient. Case discussed with Dr. Bakari Deluna discussed with: Patient My Orders My Orders Orders - ALESSIA ELLISON RESIDENT Procedure Category Date Status Time Order Routine Aptt PRO 06/09/25 In Process 08:24 Comprehensive LAB 06/10/25 Verified Metabolic Panel 04:00 Dietary Evaluation Review Comments: 1. [facility]-45 Cardiac Vegetarian diet 2. Educated pt and family that a Cardiac diet does nt allow much cheese, she has to choose beans and rice for her protein source, accommondate her likes and dislikes, Expected Outcomes/Goals: gradual wt loss Date of Service: Jun 09, 2025 Billing Provider: KARLI LAGOS MD Common Visit Codes: [id number] INP/OBS CARE(HIGH) ALESSIA ELLISON RESIDENT Jun 09, 2025 18:56 KARLI LAGOS MD Jun 10, 2025 23:12
--- NOTE | 2025-06-09 23:03 | DVHPN2 ---
Progress Note - Dictate Date Seen: Jun 09, 2025 Medical Necessity Reason Pt with a Central, PICC or Fol: No Subjective Patient was seen and evaluated in follow up. Patient transitioned to room air this evening, HGB 8.4, HCT 27. Patient on heparin drip. Waiting for INR to be in therapeutic range. Telemetry reviewed. vital signs Vital Sign Date Time Temp Pulse Resp B/P (MAP) Pulse Ox O2 Delivery O2 Flow Rate FiO2 06/09/25 20:00 87 06/09/25 20:00 20 94 Room Air* 0 21 06/09/25 17:00 98.2 149/79 (102) 98.2 Total Intake and Output 06/08/25 06/08/25 06/09/25 14:59 22:59 06:59 Intake Total 1050 ml 800 ml Balance 1050 ml 800 ml medications Current Medications Medications Dose Ordered Sig/Luisa Route Start Time Stop Time Status Last Admin Dose Admin Ondansetron HCl 4 mg Q4HP PRN IV 06/04/25 13:00 Docusate Sodium 100 mg BIDPRN PRN PO 06/04/25 13:00 Morphine Sulfate 2 mg Q4HPRN PRN IV 06/04/25 13:00 Ceftriaxone Sodium 50 ml @ 100 mls/hr DAILY@09 IV 06/05/25 09:00 06/09/25 11:11 100 MLS/HR Doxycycline Hyclate 100 ml @ 50 mls/hr Q12H IV 06/05/25 05:30 06/09/25 16:40 50 MLS/HR Nitroglycerin 0.4 mg Q5MINP PRN SL 06/04/25 17:00 Morphine Sulfate 2 mg Q30M PRN IV 06/04/25 17:00 Pantoprazole Sodium 40 mg DAILY PO 06/06/25 10:00 06/09/25 11:11 40 MG Warfarin Sodium RX PROTOCOL PER PHARMACY PO 06/05/25 18:45 Acetaminophen 650 mg Q6HP PRN PO 06/07/25 22:30 06/09/25 16:40 650 MG Heparin Sodium/ Dextrose 250 ml @ 16 mls/hr [id number] IV 06/08/25 20:00 06/09/25 11:15 16 MLS/HR objective GENERAL: Alert and oriented x 3. No acute distress. EYES: PERRL, EOMI. Anicteric. HENT: Moist mucous membranes. LUNGS: Decreased breath sounds. CARDIOVASCULAR: Regular rate and rhythm. ABDOMEN: Soft, nontender and nondistended. EXTREMITIES: No edema. NEUROLOGIC: No focal neurological deficits. SKIN: Warm, dry. laboratory and microbiology Laboratory Tests 06/09/25 02:01 06/07/25 06:11 06/05/25 05:39 Test 06/05/25 05:39 Range/Units Serum Glucose 178 H 74-106 mg/dL Problem List Acute pulmonary embolism with large clot burden with right heart strain. RLE DVT. Pneumonia. Leukocytosis. Elevated troponin. Elevated BNP. HTN. DM. HLD. Assessment/Plan Continued all current supportive medical care. IV antibiotics as ordered. Heparin drip per pharmacy. Morphine for pain management. GI prophylactics. Nitro SL. Additional plan as per the hospital course. Dietary Evaluation Review Comments: [facility]. [facility] Cardiac Vegetarian [facility] 2. Educated pt and family that a Cardiac diet does nt allow much cheese, she has to choose beans and rice for her protein source, accommondate her likes and dislikes, Expected Outcomes/Goals: gradual wt loss Plan discussed with: Patient EVELYN MULLINS MD Jun 09, 2025 23:03
[2025-06-10] VITALS (8 sets, daily range): BP systolic 114–137; BP diastolic 59–87; PULSE 68–88; RESP 17–20; TEMP 97.6–98.1; O2SAT 93–99
[2025-06-10 06:08] LABS: Hemoglobin 8.7 g/dL (12.2-16.2); Nucleated Red Blood Cells % 0.0 %
[2025-06-10 06:11] LABS: Hematocrit 27.8 % (36.0-46.0); Mean Corpuscular Hemoglobin 23.6 pg (28.0-32.0); Mean Corpuscular Volume 75.1 fL (80.0-100.0)
[2025-06-10 06:48] LABS: Alanine Aminotransferase 23 U/L (7-40); Albumin 4.1 g/dL (3.2-4.8); Alkaline Phosphatase 73 U/L (46-116); Anion Gap 10 (5-15); BUN/Creatinine Ratio 10.6 (10.0-20.0); Blood Urea Nitrogen 10 mg/dL (9-23); Calcium 9.3 mg/dL (8.7-10.4); Carbon Dioxide 29 mmol/L (20-31); Chloride 103 mmol/L (98-107); Potassium 3.9 mmol/L (3.5-5.1); Sodium 142 mmol/L (136-145); Total Protein 6.3 g/dL (5.7-8.2)
[2025-06-10 07:00] LABS: Bilirubin, Total 0.2 mg/dL (0.2-1.0); Glucose 163 mg/dL (74-106)
[2025-06-10 07:04] LABS: INR 1.68 (0.9-1.15); Prothrombin Time 16.9 sec (9.3-11.8)
[2025-06-10 07:10] LABS: Partial Thromboplastin Time 101.2 SEC (24.5-34.5)
--- NOTE | 2025-06-10 09:22 | CONS ---
Pharmacy Clinical Information: HEPARIN WAS ALREADY HELD 1 HOUR FROM 0730 TO 0830 DECREASED HEPARIN RATE FROM 16 ML/HR TO 13 ML/HR OR 1300 UNITS/HR SINCE APTT = 101.2 @0545 06/10 PER RX PROTOCOL. NEXT APTT LIAM 6 HOURS FROM START OF NEW HEP RATE 13 ML/HR AND BARBARA HAWK AWARE AND REPEATED BACK THE ORDER DOROTA KELLOGG PHARMACIST Jun 10, 2025 09:22
[2025-06-10] MEDS: HEPARIN DRIP/D5W 100UNITS/ML 250 ML IV SCH (09:30)
[2025-06-10 16:39] LABS: INR 1.76 (0.9-1.15); Partial Thromboplastin Time 55.2 SEC (24.5-34.5); Prothrombin Time 17.6 sec (9.3-11.8)
--- NOTE | 2025-06-10 16:57 | DVHPNRES ---
Progress Note Date Seen: Jun 10, 2025 Resident Creating Document: ALESSIA ELLISON Medical Necessity Reason Pt with a Central, PICC or Fol: No Subjective Review of Systems Patient seen at bedside. INR today 1.68. We are waiting for INR to be in therapeutic range. Objective vital signs Vital Sign Date Time Temp Pulse Resp B/P (MAP) Pulse Ox O2 Delivery O2 Flow Rate FiO2 06/10/25 13:24 97.9 77 18 137/72 (93) 97 97.9 06/10/25 08:00 Nasal Cannula* 4 36 Total Intake and Output 06/09/25 06/09/25 06/10/25 15:00 23:00 07:00 Intake Total 125 ml 1098 ml 800 ml Balance 125 ml 1098 ml 800 ml medications Current Medications Medications Dose Ordered Sig/Luisa Route Start Time Stop Time Status Last Admin Dose Admin Ondansetron HCl 4 mg Q4HP PRN IV 06/04/25 13:00 Docusate Sodium 100 mg BIDPRN PRN PO 06/04/25 13:00 Morphine Sulfate 2 mg Q4HPRN PRN IV 06/04/25 13:00 Ceftriaxone Sodium 50 ml @ 100 mls/hr DAILY@09 IV 06/05/25 09:00 06/10/25 09:06 100 MLS/HR Doxycycline Hyclate 100 ml @ 50 mls/hr Q12H IV 06/05/25 05:30 06/10/25 05:06 50 MLS/HR Nitroglycerin 0.4 mg Q5MINP PRN SL 06/04/25 17:00 Morphine Sulfate 2 mg Q30M PRN IV 06/04/25 17:00 Pantoprazole Sodium 40 mg DAILY PO 06/06/25 10:00 06/10/25 09:06 40 MG Warfarin Sodium RX PROTOCOL PER PHARMACY PO 06/05/25 18:45 Acetaminophen 650 mg Q6HP PRN PO 06/07/25 22:30 06/10/25 05:14 650 MG Heparin Sodium/ Dextrose 250 ml @ 13 mls/hr [id number] IV 06/10/25 09:30 06/10/25 09:30 13 MLS/HR Examination General: patient denies fever, fatigue, weaknes, sweating, any recent changes in appetite and weight HEENT: No headaches, visiual changes, hearing loss, tinnitus, nasal congestion and discharge, and sore throat. Cardiovascular: Complaints of mild chest pain, palpitations, dyspnea on exertion, orthopnea, or claudication. Respiratory: No cough, and wheezing. Gastrointestinal: Denies nausea, vomiting, dysphagia, odynophagia, heartburn, abdominal pain, flatulence, bloating, diarrhea, constipation, change in stool, or blood in stool. Genitourinary: No dysuria, hematuria, discharge, frequency, urgency, nocturia, incontinence, and urinary retention. Endocrine: No heat or cold intolerance, polydipsia, polyuria, and polyphagia. Neurological: No dizziness, extremity weakness and numbness, tremors, gait disturbance, seizures, and memory impairment. Psychiatric: Denies depression, anxiety,or insomnia. Musculoskeletal: Mild Swelling in the right lower limb, Denies neck pain, stiffness, back pain, muscle weakness, , stiffness, or limited range of motion. Skin: No rashes, itching, skin lesion, changes in hair, nail, skin texture and breast. Hematologic/Lymphatic: Denies easy bruising, bleeding tendencies, or lymph node enlargement laboratory and microbiology Laboratory Tests 06/10/25 05:45 Test 06/10/25 05:45 Range/Units Serum Glucose 163 H 74-106 mg/dL Problem List/Assessment/Plan Problem List/Assessment/Plan Massive pulmonary embolism with large clot burden with right heart strain. CTA of the chest Heparin drip Post Arterial thrombectomy by IR RLE DVT in peroneal vein. Doppler bilateral lower extremity Essential HTN. Type 2 DM. Hyperlipidemia acute luekocytosis likely from pna vs pe on ceftriaxone and doxy acute elevation in bnp likely from heart strain from pe GERD on omeprazole plantar fascitis sinusitis Moderate size sliding-type hiatal hernia DIET: Cardiac diet DVT PROPHYLAXIS: Warfarin GI PROPHYLAXIS:: Pantoprazole CODE STATUS: full code DISPOSITION: Med/surge Patient's status and plan discussed with the patient. Case discussed with Dr. Lagos Plan discussed with: Patient, Daughter My Orders My Orders Orders - ALESSIA ELLISON RESIDENT Procedure Category Date Status Time PTPTT LAB 06/11/25 Verified 04:00 Dietary Evaluation Review Comments: 1. [facility] Cardiac Vegetarian diet 2. Educated pt and family that a Cardiac diet does nt allow much cheese, she has to choose beans and rice for her protein source, accommondate her likes and dislikes, Expected Outcomes/Goals: gradual wt loss Date of Service: Jun 10, 2025 Billing Provider: KARLI LAGOS MD Common Visit Codes: [id number] INP/OBS CARE(HIGH) ALESSIA ELLISON RESIDENT Jun 10, 2025 16:04 KARLI LAGOS MD Jun 10, 2025 22:37
--- NOTE | 2025-06-10 17:16 | CONS ---
Pharmacy Clinical Information: HEPARIN DRIP, PE PROTOCOL @15:45 APTT 55.2 - NO BOLUS / NO CHANGE NEXT APTT DRAW SCHEDULED @21:30 PER RX PROTOCOL CONFIRMED AND READ BACK WITH MICHAEL HOOD [facility] RESIDENT Jun 10, 2025 17:16
[2025-06-10 22:18] LABS: INR 1.67 (0.9-1.15); Partial Thromboplastin Time 53.3 SEC (24.5-34.5); Prothrombin Time 16.8 sec (9.3-11.8)
--- NOTE | 2025-06-10 23:18 | DVHPN2 ---
Progress Note - Dictate Date Seen: Jun 10, 2025 Medical Necessity Reason Pt with a Central, PICC or Fol: No Subjective Patient was seen and evaluated in follow up. Patient complains of generalized discomfort. HGB 8.7, HCT 27.8. Telemetry reviewed. vital signs Vital Sign Date Time Temp Pulse Resp B/P (MAP) Pulse Ox O2 Delivery O2 Flow Rate FiO2 06/10/25 13:24 97.9 77 18 137/72 (93) 97 97.9 06/10/25 08:00 Nasal Cannula* 4 36 Total Intake and Output 06/09/25 06/09/25 06/10/25 15:00 23:00 07:00 Intake Total 125 ml 1098 ml 800 ml Balance 125 ml 1098 ml 800 ml medications Current Medications Medications Dose Ordered Sig/Luisa Route Start Time Stop Time Status Last Admin Dose Admin Ondansetron HCl 4 mg Q4HP PRN IV 06/04/25 13:00 Docusate Sodium 100 mg BIDPRN PRN PO 06/04/25 13:00 Morphine Sulfate 2 mg Q4HPRN PRN IV 06/04/25 13:00 Ceftriaxone Sodium 50 ml @ 100 mls/hr DAILY@09 IV 06/05/25 09:00 06/10/25 09:06 100 MLS/HR Doxycycline Hyclate 100 ml @ 50 mls/hr Q12H IV 06/05/25 05:30 06/10/25 05:06 50 MLS/HR Nitroglycerin 0.4 mg Q5MINP PRN SL 06/04/25 17:00 Morphine Sulfate 2 mg Q30M PRN IV 06/04/25 17:00 Pantoprazole Sodium 40 mg DAILY PO 06/06/25 10:00 06/10/25 09:06 40 MG Warfarin Sodium RX PROTOCOL PER PHARMACY PO 06/05/25 18:45 Acetaminophen 650 mg Q6HP PRN PO 06/07/25 22:30 06/10/25 05:14 650 MG Heparin Sodium/ Dextrose 250 ml @ 13 mls/hr [id number] IV 06/10/25 09:30 06/10/25 09:30 13 MLS/HR objective GENERAL: Alert and oriented x 3. No acute distress. EYES: PERRL, EOMI. Anicteric. HENT: Moist mucous membranes. LUNGS: Decreased breath sounds. CARDIOVASCULAR: Regular rate and rhythm. ABDOMEN: Soft, nontender and nondistended. EXTREMITIES: No edema. NEUROLOGIC: No focal neurological deficits. SKIN: Warm, dry. laboratory and microbiology Laboratory Tests 06/10/25 05:45 Test 06/10/25 05:45 Range/Units Serum Glucose 163 H 74-106 mg/dL Problem List Acute pulmonary embolism with large clot burden with right heart strain. RLE DVT. Pneumonia. Leukocytosis. Elevated troponin. Elevated BNP. HTN. DM. HLD. Assessment/Plan Continued all current supportive medical care. IV antibiotics as ordered. Heparin drip per pharmacy. Morphine and Tylenol for pain management. GI prophylactics. Nitro SL. Additional plan as per the hospital course. Dietary Evaluation Review Comments: [facility]. [facility] Card[facility] Veget[facility] 2. Educated pt and family that a Cardiac diet does nt allow much cheese, she has to choose beans and rice for her protein source, accommondate her likes and dislikes, Expected Outcomes/Goals: gradual wt loss Plan discussed with: Patient EVELYN MULLINS MD Jun 10, 2025 14:32
[2025-06-11] VITALS (9 sets, daily range): BP systolic 108–138; BP diastolic 67–77; PULSE 64–88; RESP 17–20; TEMP 97.5–99.4; O2SAT 94–99
[2025-06-11 06:19] LABS: Mean Corpuscular Volume 74.2 fL (80.0-100.0); Nucleated Red Blood Cells % 0.1 %
[2025-06-11 06:22] LABS: Hematocrit 28.7 % (36.0-46.0); Hemoglobin 9.0 g/dL (12.2-16.2); Mean Corpuscular Hemoglobin 23.3 pg (28.0-32.0)
[2025-06-11 06:34] LABS: INR 1.68 (0.9-1.15); Partial Thromboplastin Time 51.3 SEC (24.5-34.5); Prothrombin Time 16.9 sec (9.3-11.8)
--- NOTE | 2025-06-11 08:24 | CONS ---
Pharmacy Clinical Information: HEPARIN DRIP, PE PROTOCOL @05:44 APTT 51.3 - NO BOLUS / NO CHANGE 3 CONSECUTIVE APTT THERAPEUTIC => APTT EVERY 24 HRS NEXT APTT DRAW SCHEDULED @0500 PER RX PROTOCOL CONFIRMED AND READ BACK WITH KENN OVALLES,[facility] RESIDENT Jun 11, 2025 08:24
--- NOTE | 2025-06-11 14:00 | ECG ---
[facility] Test Date: 2025-06-04 Test Time: 09:17:55 Pat Name: DON FISHMAN Department: ED Room: [address] [place] [address] 2 Gender: F Acid Mixer: SHARAD : 1960 Requested By: BINH COREY Order Number: [id number] Reading MD: Favio Thurston Measurements Intervals [place] Rate: 104 P: 59 [place]: 137 QRS: 39 QRSD: 94 T: 25 QT: 353 QTc: 465 Interpretive Statements Sinus tachycardia Borderline T abnormalities, anterior leads Baseline wander in lead(s) II,V1,V2,V3,V4,V5 Electronically Signed On 06-16-2025 13:26:24 PDT by Favio Thurston Please click the below link to view image of tracing.
[2025-06-11] MEDS: WARFARIN SODIUM 5 MG TAB PO ONE (17:45)
[2025-06-11] MEDS: cefTRIAXone 1GM/50ML D5W 50 ML IV SCH (18:30)
--- NOTE | 2025-06-11 19:11 | DVHPNRES ---
Progress Note Date Seen: Jun 11, 2025 Resident Creating Document: ALESSIA ELLISON Medical Necessity Reason Pt with a Central, PICC or Fol: No Subjective Review of Systems Patient seen at bedside. Did not get her warfarin dose yesterday. Waiting for INR to be in therapeutic levels Objective vital signs Vital Sign Date Time Temp Pulse Resp B/P (MAP) Pulse Ox O2 Delivery O2 Flow Rate FiO2 06/11/25 16:53 98.9 79 18 136/75 (95) 94 98.9 06/11/25 08:30 Room Air* 0 21 Total Intake and Output 06/10/25 06/10/25 06/11/25 15:00 23:00 07:00 Intake Total 245 ml 740 ml 400 ml Balance 245 ml 740 ml 400 ml medications Current Medications Medications Dose Ordered Sig/Luisa Route Start Time Stop Time Status Last Admin Dose Admin Ondansetron HCl 4 mg Q4HP PRN IV 06/04/25 13:00 Docusate Sodium 100 mg BIDPRN PRN PO 06/04/25 13:00 Morphine Sulfate 2 mg Q4HPRN PRN IV 06/04/25 13:00 Nitroglycerin 0.4 mg Q5MINP PRN SL 06/04/25 17:00 Morphine Sulfate 2 mg Q30M PRN IV 06/04/25 17:00 Pantoprazole Sodium 40 mg DAILY PO 06/06/25 10:00 06/11/25 10:34 40 MG Warfarin Sodium RX PROTOCOL PER PHARMACY PO 06/05/25 18:45 Acetaminophen 650 mg Q6HP PRN PO 06/07/25 22:30 06/10/25 05:14 650 MG Heparin Sodium/ Dextrose 250 ml @ 13 mls/hr [id number] IV 06/10/25 09:30 06/11/25 08:25 13 MLS/HR Examination General: patient denies fever, fatigue, weaknes, sweating, any recent changes in appetite and weight HEENT: No headaches, visiual changes, hearing loss, tinnitus, nasal congestion and discharge, and sore throat. Cardiovascular: Complaints of mild chest pain, palpitations, dyspnea on exertion, orthopnea, or claudication. Respiratory: No cough, and wheezing. Gastrointestinal: Denies nausea, vomiting, dysphagia, odynophagia, heartburn, abdominal pain, flatulence, bloating, diarrhea, constipation, change in stool, or blood in stool. Genitourinary: No dysuria, hematuria, discharge, frequency, urgency, nocturia, incontinence, and urinary retention. Endocrine: No heat or cold intolerance, polydipsia, polyuria, and polyphagia. Neurological: No dizziness, extremity weakness and numbness, tremors, gait disturbance, seizures, and memory impairment. Psychiatric: Denies depression, anxiety,or insomnia. Musculoskeletal: Mild Swelling in the right lower limb, Denies neck pain, stiffness, back pain, muscle weakness, , stiffness, or limited range of motion. Skin: No rashes, itching, skin lesion, changes in hair, nail, skin texture and breast. Hematologic/Lymphatic: Denies easy bruising, bleeding tendencies, or lymph node enlargement laboratory and microbiology Laboratory Tests 06/11/25 05:44 06/10/25 05:45 Test 06/10/25 05:45 Range/Units Serum Glucose 163 H 74-106 mg/dL Problem List/Assessment/Plan Problem List/Assessment/Plan Massive pulmonary embolism with large clot burden with right heart strain. CTA of the chest Heparin drip Warfarin Post Arterial thrombectomy by IR RLE DVT in peroneal vein. Doppler bilateral lower extremity Essential HTN. Type 2 DM. Hyperlipidemia acute luekocytosis likely from pna vs pe on ceftriaxone and doxy acute elevation in bnp likely from heart strain from pe GERD on omeprazole plantar fascitis sinusitis Moderate size sliding-type hiatal hernia DIET: Cardiac diet DVT PROPHYLAXIS: Warfarin GI PROPHYLAXIS:: Pantoprazole CODE STATUS: full code DISPOSITION: Med/surge Patient's status and plan discussed with the patient. Case discussed with Dr. Villegas Plan discussed with: Patient Dietary Evaluation Review Comments: [facility] 2. Educated pt and family that a Cardiac diet does nt allow much cheese, she has to choose beans and rice for her protein source, accommondate her likes and dislikes, Expected Outcomes/Goals: gradual wt loss ALESSIA ELLISON RESIDENT Jun 11, 2025 19:11
[2025-06-11] MEDS: CEPHALEXIN 250 MG CAP PO ONE (20:45)
--- NOTE | 2025-06-11 23:47 | DVHPN2 ---
Progress Note - Dictate Date Seen: Jun 11, 2025 Medical Necessity Reason Pt with a Central, PICC or Fol: No Subjective Patient was seen and evaluated in follow up. Patient complains of generalized pain. HGB 9, HCT 28.7. The patient remains on heparin drip. Telemetry reviewed. vital signs Vital Sign Date Time Temp Pulse Resp B/P (MAP) Pulse Ox O2 Delivery O2 Flow Rate FiO2 06/11/25 09:00 98.1 77 19 138/71 (93) 97 98.1 06/10/25 20:00 Nasal Cannula* 4 36 Total Intake and Output 06/10/25 06/10/25 06/11/25 15:00 23:00 07:00 Intake Total 245 ml 740 ml 400 ml Balance 245 ml 740 ml 400 ml medications Current Medications Medications Dose Ordered Sig/Luisa Route Start Time Stop Time Status Last Admin Dose Admin Ondansetron HCl 4 mg Q4HP PRN IV 06/04/25 13:00 Docusate Sodium 100 mg BIDPRN PRN PO 06/04/25 13:00 Morphine Sulfate 2 mg Q4HPRN PRN IV 06/04/25 13:00 Ceftriaxone Sodium 50 ml @ 100 mls/hr DAILY@09 IV 06/05/25 09:00 06/10/25 09:06 100 MLS/HR Doxycycline Hyclate 100 ml @ 50 mls/hr Q12H IV 06/05/25 05:30 06/11/25 05:36 50 MLS/HR Nitroglycerin 0.4 mg Q5MINP PRN SL 06/04/25 17:00 Morphine Sulfate 2 mg Q30M PRN IV 06/04/25 17:00 Pantoprazole Sodium 40 mg DAILY PO 06/06/25 10:00 06/11/25 10:34 40 MG Warfarin Sodium RX PROTOCOL PER PHARMACY PO 06/05/25 18:45 Acetaminophen 650 mg Q6HP PRN PO 06/07/25 22:30 06/10/25 05:14 650 MG Heparin Sodium/ Dextrose 250 ml @ 13 mls/hr [id number] IV 06/10/25 09:30 06/11/25 01:10 13 MLS/HR objective GENERAL: Alert and oriented x 3. No acute distress. EYES: PERRL, EOMI. Anicteric. HENT: Moist mucous membranes. LUNGS: Decreased breath sounds. CARDIOVASCULAR: Regular rate and rhythm. ABDOMEN: Soft, nontender and nondistended. EXTREMITIES: No edema. NEUROLOGIC: No focal neurological deficits. SKIN: Warm, dry. laboratory and microbiology Laboratory Tests 06/11/25 05:44 06/10/25 05:45 Test 06/10/25 05:45 Range/Units Serum Glucose 163 H 74-106 mg/dL Problem List Acute pulmonary embolism with large clot burden with right heart strain. RLE DVT. Pneumonia. Leukocytosis. Elevated troponin. Elevated BNP. HTN. DM. HLD. Assessment/Plan Continued all current supportive medical care. IV antibiotics as ordered. Heparin drip per pharmacy. Morphine for pain management. GI prophylactics. Nitro SL. Additional plan as per the hospital course. Dietary Evaluation Review Comments: [facility]. [facility] Card[facility] Veget[facility] diet 2. Educated pt and family that a Cardiac diet does nt allow much cheese, she has to choose beans and rice for her protein source, accommondate her likes and dislikes, Expected Outcomes/Goals: gradual wt loss Plan discussed with: Patient EVELYN MULLINS MD Jun 11, 2025 12:44
[2025-06-12] VITALS (8 sets, daily range): BP systolic 111–133; BP diastolic 61–77; PULSE 74–88; RESP 16–18; TEMP 97.9–98.3; O2SAT 92–95
[2025-06-12 07:31] LABS: Hemoglobin 9.9 g/dL (12.2-16.2); Nucleated Red Blood Cells % 0.3 %
[2025-06-12 07:36] LABS: Hematocrit 31.4 % (36.0-46.0); Mean Corpuscular Hemoglobin 23.5 pg (28.0-32.0); Mean Corpuscular Volume 74.1 fL (80.0-100.0)
[2025-06-12 09:06] LABS: INR 1.6 (0.9-1.15); Partial Thromboplastin Time 61.1 SEC (24.5-34.5); Prothrombin Time 16.2 sec (9.3-11.8)
[2025-06-12] MEDS: CEPHALEXIN 250 MG CAP PO ONE (10:46)
--- NOTE | 2025-06-12 11:28 | DVHPNRES ---
Progress Note Date Seen: Jun 12, 2025 Resident Creating Document: ALESSIA ELLISON Medical Necessity Reason Pt with a Central, PICC or Fol: No Subjective Review of Systems Patient seen at bedside. Tolerating well on room air. INR today 1.6. Objective vital signs Vital Sign Date Time Temp Pulse Resp B/P (MAP) Pulse Ox O2 Delivery O2 Flow Rate FiO2 06/12/25 08:12 Room Air* 0 21 06/12/25 05:00 98.0 78 18 116/72 (87) 94 98.0 Total Intake and Output 06/11/25 06/11/25 06/12/25 15:00 23:00 07:00 Intake Total 828 ml 700 ml Balance 828 ml 700 ml medications Current Medications Medications Dose Ordered Sig/Luisa Route Start Time Stop Time Status Last Admin Dose Admin Ondansetron HCl 4 mg Q4HP PRN IV 06/04/25 13:00 Morphine Sulfate 2 mg Q4HPRN PRN IV 06/04/25 13:00 Nitroglycerin 0.4 mg Q5MINP PRN SL 06/04/25 17:00 Morphine Sulfate 2 mg Q30M PRN IV 06/04/25 17:00 Pantoprazole Sodium 40 mg DAILY PO 06/06/25 10:00 06/12/25 10:46 40 MG Warfarin Sodium RX PROTOCOL PER PHARMACY PO 06/05/25 18:45 Acetaminophen 650 mg Q6HP PRN PO 06/07/25 22:30 06/11/25 20:44 650 MG Heparin Sodium/ Dextrose 250 ml @ 13 mls/hr [id number] IV 06/10/25 09:30 06/11/25 21:42 13 MLS/HR Examination General: patient denies fever, fatigue, weaknes, sweating, any recent changes in appetite and weight HEENT: No headaches, visiual changes, hearing loss, tinnitus, nasal congestion and discharge, and sore throat. Cardiovascular: Complaints of mild chest pain, palpitations, dyspnea on exertion, orthopnea, or claudication. Respiratory: No cough, and wheezing. Gastrointestinal: Denies nausea, vomiting, dysphagia, odynophagia, heartburn, abdominal pain, flatulence, bloating, diarrhea, constipation, change in stool, or blood in stool. Genitourinary: No dysuria, hematuria, discharge, frequency, urgency, nocturia, incontinence, and urinary retention. Endocrine: No heat or cold intolerance, polydipsia, polyuria, and polyphagia. Neurological: No dizziness, extremity weakness and numbness, tremors, gait disturbance, seizures, and memory impairment. Psychiatric: Denies depression, anxiety,or insomnia. Musculoskeletal: Mild Swelling in the right lower limb, Denies neck pain, stiffness, back pain, muscle weakness, , stiffness, or limited range of motion. Skin: No rashes, itching, skin lesion, changes in hair, nail, skin texture and breast. Hematologic/Lymphatic: Denies easy bruising, bleeding tendencies, or lymph node enlargeme laboratory and microbiology Laboratory Tests 06/12/25 06:40 06/10/25 05:45 Test 06/10/25 05:45 Range/Units Serum Glucose 163 H 74-106 mg/dL Problem List/Assessment/Plan Problem List/Assessment/Plan Massive pulmonary embolism with large clot burden with right heart strain. CTA of the chest Heparin drip Warfarin Post Arterial thrombectomy by IR RLE DVT in peroneal vein. Doppler bilateral lower extremity Essential HTN. Type 2 DM. Hyperlipidemia acute luekocytosis likely from pna vs pe on ceftriaxone and doxy acute elevation in bnp likely from heart strain from pe Acute respiratory failure now resolved GERD on omeprazole plantar fascitis sinusitis Moderate size sliding-type hiatal hernia DIET: Cardiac diet DVT PROPHYLAXIS: Warfarin GI PROPHYLAXIS:: Pantoprazole CODE STATUS: full code DISPOSITION: Telemetry Patient's status and plan discussed with the patient. Case discussed with Dr. Villegas Plan discussed with: Patient Dietary Evaluation Review Comments: [facility]. [facility] Card[facility] Veget[facility] 2. Educated pt and family that a Cardiac diet does nt allow much cheese, she has to choose beans and rice for her protein source, accommondate her likes and dislikes, Expected Outcomes/Goals: gradual wt loss ALESSIA ELLISON RESIDENT Jun 12, 2025 11:28
[2025-06-12] MEDS: WARFARIN SODIUM 2.5 MG TAB PO ONE (16:56)
--- NOTE | 2025-06-12 17:31 | DVHPN2 ---
Progress Note - Dictate Date Seen: Jun 12, 2025 Medical Necessity Reason Pt with a Central, PICC or Fol: No Subjective Patient was seen and evaluated in follow up. Patient cis complaining of generalized pain. HGB 9.1, HCT 31.4. Patient refused COVID and Influenza swabs. Telemetry reviewed. vital signs Vital Sign Date Time Temp Pulse Resp B/P (MAP) Pulse Ox O2 Delivery O2 Flow Rate FiO2 06/12/25 08:20 80 06/12/25 08:12 Room Air* 0 21 06/12/25 05:00 98.0 18 116/72 (87) 94 98.0 Total Intake and Output 06/11/25 06/11/25 06/12/25 15:00 23:00 07:00 Intake Total 828 ml 700 ml Balance 828 ml 700 ml medications Current Medications Medications Dose Ordered Sig/Luisa Route Start Time Stop Time Status Last Admin Dose Admin Ondansetron HCl 4 mg Q4HP PRN IV 06/04/25 13:00 Morphine Sulfate 2 mg Q4HPRN PRN IV 06/04/25 13:00 Nitroglycerin 0.4 mg Q5MINP PRN SL 06/04/25 17:00 Morphine Sulfate 2 mg Q30M PRN IV 06/04/25 17:00 Pantoprazole Sodium 40 mg DAILY PO 06/06/25 10:00 06/12/25 10:46 40 MG Warfarin Sodium RX PROTOCOL PER PHARMACY PO 06/05/25 18:45 Acetaminophen 650 mg Q6HP PRN PO 06/07/25 22:30 06/11/25 20:44 650 MG Heparin Sodium/ Dextrose 250 ml @ 13 mls/hr [id number] IV 06/10/25 09:30 06/11/25 21:42 13 MLS/HR objective GENERAL: Alert and oriented x 3. No acute distress. EYES: PERRL, EOMI. Anicteric. HENT: Moist mucous membranes. LUNGS: Decreased breath sounds. CARDIOVASCULAR: Regular rate and rhythm. ABDOMEN: Soft, nontender and nondistended. EXTREMITIES: No edema. NEUROLOGIC: No focal neurological deficits. SKIN: Warm, dry. laboratory and microbiology Laboratory Tests 06/12/25 06:40 06/10/25 05:45 Test 06/10/25 05:45 Range/Units Serum Glucose 163 H 74-106 mg/dL Problem List Acute pulmonary embolism with large clot burden with right heart strain. RLE DVT. Pneumonia. Leukocytosis. Elevated troponin. Elevated BNP. HTN. DM. HLD. Assessment/Plan Continued all current supportive medical care. Heparin drip per pharmacy. Morphine for pain management. GI prophylactics. Nitro SL. Additional plan as per the hospital course. [facility]ary Evaluation Review Comments: [facility] 2. Educated pt and family that a Cardiac diet does nt allow much cheese, she has to choose beans and rice for her protein source, accommondate her likes and dislikes, Expected Outcomes/Goals: gradual wt loss Plan discussed with: Patient EVELYN MULLINS MD Jun 12, 2025 12:19
[2025-06-13] VITALS (8 sets, daily range): BP systolic 107–140; BP diastolic 62–79; PULSE 73–80; RESP 17–19; TEMP 97.5–98.4; O2SAT 92–97
[2025-06-13 05:27] LABS: Hematocrit 30.9 % (36.0-46.0); Hemoglobin 9.7 g/dL (12.2-16.2); Mean Corpuscular Hemoglobin 22.9 pg (28.0-32.0); Mean Corpuscular Volume 73.2 fL (80.0-100.0); Nucleated Red Blood Cells % 0.1 %
[2025-06-13 06:36] LABS: INR 1.93 (0.9-1.15); Partial Thromboplastin Time 58.6 SEC (24.5-34.5); Prothrombin Time 19.2 sec (9.3-11.8)
--- NOTE | 2025-06-13 10:31 | DVHPNRES ---
Progress Note Date Seen: Jun 13, 2025 Resident Creating Document: ALESSIA ELLISON Medical Necessity Reason Pt with a Central, PICC or Fol: No Subjective Review of Systems Patient seen at bedside. INR today 1.9. Waiting for therapeutic levels. Objective vital signs Vital Sign Date Time Temp Pulse Resp B/P (MAP) Pulse Ox O2 Delivery O2 Flow Rate FiO2 06/13/25 08:35 97.9 78 18 110/71 (84) 93 97.9 06/13/25 08:12 Room Air* 0 21 Total Intake and Output 06/12/25 06/12/25 06/13/25 15:00 23:00 07:00 Intake Total 584 ml 823 ml 900 ml Balance 584 ml 823 ml 900 ml medications Current Medications Medications Dose Ordered Sig/Luisa Route Start Time Stop Time Status Last Admin Dose Admin Ondansetron HCl 4 mg Q4HP PRN IV 06/04/25 13:00 Morphine Sulfate 2 mg Q4HPRN PRN IV 06/04/25 13:00 Nitroglycerin 0.4 mg Q5MINP PRN SL 06/04/25 17:00 Morphine Sulfate 2 mg Q30M PRN IV 06/04/25 17:00 Pantoprazole Sodium 40 mg DAILY PO 06/06/25 10:00 06/13/25 09:27 40 MG Warfarin Sodium RX PROTOCOL PER PHARMACY PO 06/05/25 18:45 Acetaminophen 650 mg Q6HP PRN PO 06/07/25 22:30 06/11/25 20:44 650 MG Heparin Sodium/ Dextrose 250 ml @ 13 mls/hr [id number] IV 06/10/25 09:30 06/12/25 17:21 13 MLS/HR Examination General: patient denies fever, fatigue, weaknes, sweating, any recent changes in appetite and weight HEENT: No headaches, visiual changes, hearing loss, tinnitus, nasal congestion and discharge, and sore throat. Cardiovascular: Complaints of mild chest pain, palpitations, dyspnea on exertion, orthopnea, or claudication. Respiratory: No cough, and wheezing. Gastrointestinal: Denies nausea, vomiting, dysphagia, odynophagia, heartburn, abdominal pain, flatulence, bloating, diarrhea, constipation, change in stool, or blood in stool. Genitourinary: No dysuria, hematuria, discharge, frequency, urgency, nocturia, incontinence, and urinary retention. Endocrine: No heat or cold intolerance, polydipsia, polyuria, and polyphagia. Neurological: No dizziness, extremity weakness and numbness, tremors, gait disturbance, seizures, and memory impairment. Psychiatric: Denies depression, anxiety,or insomnia. Musculoskeletal: Mild Swelling in the right lower limb, Denies neck pain, stiffness, back pain, muscle weakness, , stiffness, or limited range of motion. Skin: No rashes, itching, skin lesion, changes in hair, nail, skin texture and breast. laboratory and microbiology Laboratory Tests 06/13/25 04:35 06/10/25 05:45 Test 06/10/25 05:45 Range/Units Serum Glucose 163 H 74-106 mg/dL Problem List/Assessment/Plan Problem List/Assessment/Plan Massive pulmonary embolism with large clot burden with right heart strain. CTA of the chest Heparin drip Warfarin Post Arterial thrombectomy by IR RLE DVT in peroneal vein. Doppler bilateral lower extremity Essential HTN. Type 2 DM. Hyperlipidemia acute luekocytosis likely from pneumonia on ceftriaxone and doxy acute elevation in bnp likely from heart strain from pe Acute respiratory failure now resolved GERD on omeprazole plantar fascitis sinusitis Moderate size sliding-type hiatal hernia DIET: Cardiac diet DVT PROPHYLAXIS: Warfarin GI PROPHYLAXIS:: Pantoprazole CODE STATUS: full code DISPOSITION: Telemetry Patient's status and plan discussed with the patient. Case discussed with Dr. Villegas Plan discussed with: Patient, Daughter Dietary Evaluation Review Comments: 1. [facility]-45 Cardiac Vegetarian diet 2. Educated pt and family that a Cardiac diet does nt allow much cheese, she has to choose beans and rice for her protein source, accommondate her likes and dislikes, Expected Outcomes/Goals: gradual wt loss Date of Service: Jun 13, 2025 Billing Provider: AIDA KELLOGG MD Common Visit Codes: 12880-[id number] INP/OBS CARE(HIGH) ALESSIA ELLISON RESIDENT Jun 13, 2025 10:28 AIDA KELLOGG MD Jun 14, 2025 09:23
[2025-06-13] MEDS: WARFARIN SODIUM 5 MG TAB PO ONE (16:33)
[2025-06-13] MEDS ORDERED: WARFARIN SODIUM 2.5 MG TAB PO ONE (17:00)
--- NOTE | 2025-06-13 23:05 | DVHPN2 ---
Progress Note - Dictate Date Seen: Jun 13, 2025 Medical Necessity Reason Pt with a Central, PICC or Fol: No Subjective Patient was seen and evaluated in follow up. Patient is complaining of generalized pain. HGB 9.7, HCT 30.9, INR 1.9. Telemetry reviewed. vital signs Vital Sign Date Time Temp Pulse Resp B/P (MAP) Pulse Ox O2 Delivery O2 Flow Rate FiO2 06/13/25 08:35 97.9 78 18 110/71 (84) 93 97.9 06/13/25 08:12 Room Air* 0 21 Total Intake and Output 06/12/25 06/12/25 06/13/25 15:00 23:00 07:00 Intake Total 584 ml 823 ml 900 ml Balance 584 ml 823 ml 900 ml medications Current Medications Medications Dose Ordered Sig/Luisa Route Start Time Stop Time Status Last Admin Dose Admin Ondansetron HCl 4 mg Q4HP PRN IV 06/04/25 13:00 Morphine Sulfate 2 mg Q4HPRN PRN IV 06/04/25 13:00 Nitroglycerin 0.4 mg Q5MINP PRN SL 06/04/25 17:00 Morphine Sulfate 2 mg Q30M PRN IV 06/04/25 17:00 Pantoprazole Sodium 40 mg DAILY PO 06/06/25 10:00 06/13/25 09:27 40 MG Warfarin Sodium RX PROTOCOL PER PHARMACY PO 06/05/25 18:45 Acetaminophen 650 mg Q6HP PRN PO 06/07/25 22:30 06/11/25 20:44 650 MG Heparin Sodium/ Dextrose 250 ml @ 13 mls/hr [id number] IV 06/10/25 09:30 06/12/25 17:21 13 MLS/HR objective GENERAL: Alert and oriented x 3. No acute distress. EYES: PERRL, EOMI. Anicteric. HENT: Moist mucous membranes. LUNGS: Decreased breath sounds. CARDIOVASCULAR: Regular rate and rhythm. ABDOMEN: Soft, nontender and nondistended. EXTREMITIES: No edema. NEUROLOGIC: No focal neurological deficits. SKIN: Warm, dry. laboratory and microbiology Laboratory Tests 06/13/25 04:35 06/10/25 05:45 Test 06/10/25 05:45 Range/Units Serum Glucose 163 H 74-106 mg/dL Problem List Acute pulmonary embolism with large clot burden with right heart strain. RLE DVT. Pneumonia. Leukocytosis. Elevated troponin. Elevated BNP. HTN. DM. HLD. Assessment/Plan Continued all current supportive medical care. Morphine for pain management. GI prophylactics. Nitro SL. Additional plan as per the hospital course. Dietary Evaluation Review Comments: 1. [facility] Cardiac Vegetarian diet 2. Educated pt and family that a Cardiac diet does nt allow much cheese, she has to choose beans and rice for her protein source, accommondate her likes and dislikes, Expected Outcomes/Goals: gradual wt loss Plan discussed with: Patient EVELYN MULLINS MD Jun 13, 2025 12:30
[2025-06-14] VITALS (7 sets, daily range): BP systolic 107–124; BP diastolic 55–70; PULSE 66–84; RESP 17–19; TEMP 97.7–98.5; O2SAT 93–98
[2025-06-14 06:41] LABS: INR 2.73 (0.9-1.15); Prothrombin Time 26.2 sec (9.3-11.8)
[2025-06-14 06:44] LABS: Partial Thromboplastin Time 80.6 SEC (24.5-34.5)
[2025-06-14] MEDS: HEPARIN DRIP/D5W 100UNITS/ML 250 ML IV SCH (07:26)
--- NOTE | 2025-06-14 09:11 | CONS ---
Pharmacy Clinical Information: HEPARIN DRIP, PE PROTOCOL APTT 80.6 @ 0557 - Rate decreased to 1100 units/hr (11mL/hr) Rate adjusted by KENN Marie Next APTT scheduled for 1300 per PRx protocol. RADHA MARADIAGA PHARMACIST Jun 14, 2025 09:11
[2025-06-14 09:42] LABS: Hemoglobin 9.3 g/dL (12.2-16.2); Mean Corpuscular Hemoglobin 22.9 pg (28.0-32.0)
[2025-06-14 09:45] LABS: Hematocrit 30.0 % (36.0-46.0); Mean Corpuscular Volume 73.6 fL (80.0-100.0); Nucleated Red Blood Cells % 0.2 %
[2025-06-14 13:52] LABS: INR 2.7 (0.9-1.15); Partial Thromboplastin Time 51.1 SEC (24.5-34.5); Prothrombin Time 25.9 sec (9.3-11.8)
--- NOTE | 2025-06-14 15:35 | DVHPNRES ---
Progress Note Date Seen: Jun 14, 2025 Resident Creating Document: LORNA PEARCE RESIDENT Medical Necessity Reason Pt with a Central, PICC or Fol: No Subjective Review of Systems Brief history and review of system on admission: 64-year-old female with past medical history of hypertension, diabetes, sinusitis, plantar fasciitis hospital with chief complaint of chest pain. The pain was graded 9/10 in severity with no radiation exacerbated by exercise and relieved by resting. It was associated with shortness of breath and leg pain. She had a history of long road trips for the past few weeks and long journey flight recently. On arrival the hospital her oxygen saturation was 80% after which he was put on oxygen saturation increased to 98%. Doppler showed right lower limb DVT in the peroneal vein. CT angiography showed massive pulmonary emboli and sliding hiatal hernia. PMHx:hypertension, diabetes, sinusitis, plantar fasciitis Family history: History of clotting disorder in the daughter Social history: No history of smoking alcohol or recreational drug use Allergic history: None ROS: Constitutional: Denies weight loss, fever and chills. HEENT: Denies changes in vision and hearing. Respiratory: Denies shortness of breath and cough Cardiovascular: Complaints of mild chest pain, palpitations, dyspnea on exertion OA. GI: Denies abdominal pain, nausea, vomiting and diarrhea. : Denies dysuria and urinary frequency. Musculoskeletal: Swelling in the right lower limb OA Skin: Denies rash and pruritus. Neurological: Denies dizziness, headache, vision or hearing problems 06/14/2025: She was examined at bedside today. Pulmonary embolism, Status post Arterial thrombectomy. No new complaints today. Reports resolution of lower extremity edema. INR within therapeutic range now. We will discontinue heparin today and optimize warfarin dose for discharge. Objective vital signs Vital Sign Date Time Temp Pulse Resp B/P (MAP) Pulse Ox O2 Delivery O2 Flow Rate FiO2 06/14/25 13:08 98.2 73 18 107/55 (72) 94 98.2 06/14/25 08:08 Room Air* 0 21 Total Intake and Output 06/13/25 06/13/25 06/14/25 15:00 23:00 07:00 Intake Total 209 ml 308.5 ml 480 ml Balance 209 ml 308.5 ml 480 ml medications Current Medications Medications Dose Ordered Sig/Luisa Route Start Time Stop Time Status Last Admin Dose Admin Ondansetron HCl 4 mg Q4HP PRN IV 06/04/25 13:00 Morphine Sulfate 2 mg Q4HPRN PRN IV 06/04/25 13:00 Nitroglycerin 0.4 mg Q5MINP PRN SL 06/04/25 17:00 Morphine Sulfate 2 mg Q30M PRN IV 06/04/25 17:00 Pantoprazole Sodium 40 mg DAILY PO 06/06/25 10:00 06/14/25 10:02 40 MG Warfarin Sodium RX PROTOCOL PER PHARMACY PO 06/05/25 18:45 Acetaminophen 650 mg Q6HP PRN PO 06/07/25 22:30 06/11/25 20:44 650 MG Examination General: Patient alert and oriented in person, place and time. Patient following commands. HEENT: Normocephalic, atraumatic, moist mucous membranes Respiratory/pulmonary: Reduced breath sounds bilaterally, without crackles/wheezing Cardiovascular: Normal heart sounds S1 and S2 with no associated murmurs Abdomen: Abdomen nondistended, there is no pain to palpation in any of the abdominal quadrants, no palpable masses. Extremities: No pedal edema on extremities now Peripheral Pulses: 3+ Radial (R). 3+ Radial (L). 3+ Dorsalis pedis (R). 3+ Dorsalis pedis(L) Skin: No rashes or pruritus, there is no sacral edema present at this time. Neurological: Intact cranial nerves with no focal neurologic deficits laboratory and microbiology Laboratory Tests 06/14/25 05:57 06/10/25 05:45 Test 06/10/25 05:45 Range/Units Serum Glucose 163 H 74-106 mg/dL Problem List/Assessment/Plan Problem List/Assessment/Plan Massive pulmonary embolism with large clot burden with right heart strain Status post Arterial thrombectomy Acute respiratory failure, due to above, resolved now CTA of the chest revealed Massive bilateral pulmonary emboli. Discontinued Heparin drip Continue Warfarin, monitor INR, therapeutic range 2 to 3 Continue spirometry RLE DVT in peroneal vein Doppler revealed DVT in right lower extremity peroneal vein Essential HTN. Type 2 DM. Hyperlipidemia Acute leukocytosis likely from pneumonia Given IV ceftriaxone and doxy History of GERD Continue omeprazole History of plantar fascitis History of sinusitis History of Moderate size sliding-type hiatal hernia DIET: Cardiac diet DVT PROPHYLAXIS: Warfarin GI PROPHYLAXIS: Pantoprazole CODE STATUS: Full code DISPOSITION: Telemetry Plan discussed with Dr. Clifton Plan discussed with: Patient (and daughter) Dietary Evaluation Review Comments: 1. [facility]-45 Cardiac Vegetarian diet 2. Educated pt and family that a Cardiac diet does nt allow much cheese, she has to choose beans and rice for her protein source, accommondate her likes and dislikes, Expected Outcomes/Goals: gradual wt loss Date of Service: Jun 14, 2025 Billing Provider: AIDA CLIFTON MD Common Visit Codes: [id number] INP/OBS CARE(HIGH) LORNA PEARCE RESIDENT Jun 14, 2025 15:35 AIDA CLIFTON MD Jun 14, 2025 23:06
[2025-06-14] MEDS: WARFARIN SODIUM 2.5 MG TAB PO ONE (16:34)
--- NOTE | 2025-06-14 20:05 | DVHPN2 ---
Progress Note - Dictate Date Seen: Jun 14, 2025 Medical Necessity Reason Pt with a Central, PICC or Fol: No Subjective Patient was seen and evaluated in follow up. Patient denies any current complaints. Patients lower extremity edema has resolved. INR within therapeutic range now., heparin is being discontinued today. HGB 9.3, HCT 30. Telemetry reviewed. vital signs Vital Sign Date Time Temp Pulse Resp B/P (MAP) Pulse Ox O2 Delivery O2 Flow Rate FiO2 06/14/25 13:08 98.2 73 18 107/55 (72) 94 98.2 06/14/25 08:08 Room Air* 0 21 Total Intake and Output 06/13/25 06/13/25 06/14/25 15:00 23:00 07:00 Intake Total 209 ml 308.5 ml 480 ml Balance 209 ml 308.5 ml 480 ml medications Current Medications Medications Dose Ordered Sig/Luisa Route Start Time Stop Time Status Last Admin Dose Admin Ondansetron HCl 4 mg Q4HP PRN IV 06/04/25 13:00 Morphine Sulfate 2 mg Q4HPRN PRN IV 06/04/25 13:00 Nitroglycerin 0.4 mg Q5MINP PRN SL 06/04/25 17:00 Morphine Sulfate 2 mg Q30M PRN IV 06/04/25 17:00 Pantoprazole Sodium 40 mg DAILY PO 06/06/25 10:00 06/14/25 10:02 40 MG Warfarin Sodium RX PROTOCOL PER PHARMACY PO 06/05/25 18:45 Acetaminophen 650 mg Q6HP PRN PO 06/07/25 22:30 06/11/25 20:44 650 MG objective GENERAL: Alert and oriented x 3. No acute distress. EYES: PERRL, EOMI. Anicteric. HENT: Moist mucous membranes. LUNGS: Decreased breath sounds. CARDIOVASCULAR: Regular rate and rhythm. ABDOMEN: Soft, nontender and nondistended. EXTREMITIES: No edema. NEUROLOGIC: No focal neurological deficits. SKIN: Warm, dry. laboratory and microbiology Laboratory Tests 06/14/25 05:57 06/10/25 05:45 Test 06/10/25 05:45 Range/Units Serum Glucose 163 H 74-106 mg/dL Problem List Acute pulmonary embolism with large clot burden with right heart strain. RLE DVT. Pneumonia. Leukocytosis. Elevated troponin. Elevated BNP. HTN. DM. HLD. Assessment/Plan Continued all current supportive medical care. Morphine for pain management. GI prophylactics. Nitro SL. Additional plan as per the hospital course. Dietary Evaluation Review Comments: 1. C[facility]-45 Cardiac Vegetarian diet 2. Educated pt and family that a Cardiac diet does nt allow much cheese, she has to choose beans and rice for her protein source, accommondate her likes and dislikes, Expected Outcomes/Goals: gradual wt loss Plan discussed with: Patient EVELYN MULLINS MD Jun 14, 2025 13:55
[2025-06-15 05:17] VITALS: BP 101/62; PULSE 74; RESP 16; TEMP 98.2; O2SAT 92
[2025-06-15 08:00] VITALS: PULSE 77
[2025-06-15 08:54] VITALS: BP 127/70; PULSE 75; RESP 18; TEMP 98.1; O2SAT 94
[2025-06-15 09:44] LABS: Hematocrit 35.2 % (36.0-46.0); Hemoglobin 10.4 g/dL (12.2-16.2); Mean Corpuscular Hemoglobin 22.7 pg (28.0-32.0); Mean Corpuscular Volume 76.8 fL (80.0-100.0); Nucleated Red Blood Cells % 0.1 %
[2025-06-15 09:54] LABS: INR 3.16 (0.9-1.15); Partial Thromboplastin Time 37.8 SEC (24.5-34.5); Prothrombin Time 29.9 sec (9.3-11.8)
[2025-06-15 13:32] VITALS: BP 128/71; PULSE 74; RESP 18; TEMP 97.7; O2SAT 98
[2025-06-15] MEDS ORDERED: WARF-66 PO (13:38)
[2025-06-15] MEDS ORDERED: ACET-1882 PO (13:38)
[2025-06-15 14:36] VITALS: BP 128/71; PULSE 74; RESP 18; TEMP 97.7; O2SAT 98
--- NOTE | 2025-06-15 18:07 | DVHDSRES ---
Discharge Summary Date of Admission Resident Creating Document: ARELY BLACKBURN RESIDENT Jun 04, 2025 at 12:55 Date of Discharge: Jun 15, 2025 Labs/Diagnostic Data: Laboratory Results Test 06/15/25 09:20 06/10/25 05:45 06/09/25 14:45 06/05/25 18:57 White Blood Count 6.8 10^3/uL (4.4-10.8) Red Blood Count 4.59 10^6/uL (4.0-5.20) Hemoglobin 10.4 g/dL (12.2-16.2) Hematocrit 35.2 % (36.0-46.0) Mean Corpuscular Volume 76.8 fL (80.0-100.0) Mean Corpuscular Hemoglobin 22.7 pg (28.0-32.0) Mean Corpuscular Hemoglobin Concent 29.6 g/dL (32.0-36.0) Red Cell Distribution Width 17.3 % (11.8-14.3) Platelet Count 262 10^3/uL (140-450) Mean Platelet Volume 10.0 fL (6.9-10.8) Neutrophils (%) (Auto) 64.3 % (37.0-80.0) Lymphocytes (%) (Auto) 24.1 % (10.0-50.0) Monocytes (%) (Auto) 8.1 % (0.0-12.0) Eosinophils (%) (Auto) 2.7 % (0.0-7.0) Basophils (%) (Auto) 0.8 % (0.0-2.0) Neutrophils # (Auto) 4.4 10 ^3/uL (1.6-8.6) Lymphocytes # (Auto) 1.6 10 ^3/uL (0.4-5.4) Monocytes # (Auto) 0.6 10 ^3/uL (0-1.3) Eosinophils # (Auto) 0.2 10 ^3/uL (0-0.8) Basophils # (Auto) 0.1 10 ^3/uL (0-0.2) Nucleated Red Blood Cells 0.1 % Prothrombin Time 29.9 sec (9.3-11.8) Prothrombin Time INR 3.16 (0.9-1.15) Activated Partial Thromboplast Time 37.8 SEC (24.5-34.5) Creatinine 1.11 mg/dL (0.550-1.02) Glomerular Filtration Rate Calc 56 mL/min (>90) Sodium Level 142 mmol/L (136-145) Potassium Level 3.9 mmol/L (3.5-5.1) Chloride Level 103 mmol/L (98-107) Carbon Dioxide Level 29 mmol/L (20-31) Anion Gap 10 (5-15) Blood Urea Nitrogen 10 mg/dL (9-23) BUN/Creatinine Ratio 10.6 (10.0-20.0) Serum Glucose 163 mg/dL (74-106) Calcium Level 9.3 mg/dL (8.7-10.4) Total Bilirubin 0.2 mg/dL (0.2-1.0) Aspartate Amino Transferase (AST) 21 U/L (13-40) Alanine Aminotransferase (ALT) 23 U/L (7-40) Alkaline Phosphatase 73 U/L (46-116) Total Protein 6.3 g/dL (5.7-8.2) Albumin 4.1 g/dL (3.2-4.8) Blood Gas Specimen Type Arterial Blood Gas Sample Site Right radial Blood Gas Patient Temperature 37.0 Arterial Blood Date Drawn [id number] Arterial Blood pH 7.448 (7.350-7.450) Arterial Blood Partial Pressure CO2 38.1 mmHg (32.0-45.0) Arterial Blood Partial Pressure O2 67.1 mmHg (83.0-108.0) Arterial Blood HCO3 25.8 mmol/L (21.0-28.0) Arterial Blood Oxygen Saturation 92.5 % (94.0-98.0) Arterial Blood Base Excess 1.7 mmol/L (-2.0-3.0) Arterial Blood Oxyhemoglobin 91.9 % (94.0-98.0) Arterial Blood Carboxyhemoglobin 0.2 % (0.5-1.5) Arterial Blood Methemoglobin 0.5 % (0.0-1.5) Ravi Test Yes Blood Gas Total Hemoglobin 9.90 g/dL (12.0-16.0) Blood Gas Modality Room air FiO2 % 21.0 POC Glucose 161 mg/dl (70-106) Test 06/04/25 13:12 06/04/25 09:32 Troponin I High Sensitivity 292 ng/L (</=34) Magnesium Level 1.9 mg/dL (1.6-2.6) B-Type Natriuretic Peptide 212.75 pg/mL (0-100) Other Laboratory Tests 06/15/25 09:20 06/10/25 05:45 Brief Hx & Hospital Course: This is a 64-year-old female past medical history hypertension, to diabetes mellitus, no surgical history chief complaint patient states she has been short of breath since Sunday. During admission, She stated recently went on a trip for two weeks from [place] all the way back to [place] she had been in the car where she was able to get up and walk some but she stated she started having shortness of the breath, since Sunday her sats on room air was 80% when she arrived she was heart rate was 120 they put her on non-rebreather mask she came up to 98% on room air patient denies any history of blood clots in the past but she does have a daughter who has history of blood clots in his currently on blood thinners when evaluating patient's labs and imaging from ED heparin was given ceftriaxone Lovenox white count was 15.3 glucose was 278 otherwise CBC and CMP unremarkable . Past Medical History HTN, dm 2 Past Surgical History: Denies Family History: non-contributory to the management of this case. Past Social History: The patient lives at home, denies smoking, alcohol or illicit drugs abuse. Hospital course: Bilateral lower extremity Venous duplex shows-DVT show right lower extremity peroneal veins, No DVT left lower extremity. CT angio measures bilateral PE large clot burden with right heart strain she also has patchy ground-glass infiltrates. Heparin drip started and IR consulted for thrombectomy. Echo on 05/27/2025: hyperdynamic left ventricle, EF 72 and is high moderately dilated right ventricle and right atrium, RVSP is 55. Thrombectomy done on left lower lobe, right interlobar, right truncus anterior by IR on 06/04/2025 and started on warfarin. Patient currently denies any SOB, chest pain, cough, headache, fever, abdominal pain or any other acute distress. Signs symptoms of active bleeding noted. Lab shows PT 25.9, INR 2.70, PTT 51.1. Patient advised to follow-up with primary care within 2 weeks after hospital discharge, follow- up with [facility] within week. Patient hemodynamically stable, asymptomatic, in condition to be discharged home. Was granted under optimal medical therapy (warfarin today 0 mg, rest of days 5 mg p.o. daily until Sunday where he will follow up with discharge Clinic), gave advice on healthy lifestyle habits, and follow up with PCP and Coumadin Clinic (prior to visit he should complete PT/PTT/INR laboratory workup). DIAGNOSIS Pulmonary embolus Thrombectomy Acute respiratory distress Left lower extremity DVT Leukocytosis Elevated troponin Acute pulmonary embolism with large clot burden with right heart strain. RLE DVT. Pneumonia. Leukocytosis. Elevated troponin. Elevated BNP. HTN. GERD DM. HLD. Goals of care discussed with patient for over 18 minutes: Full code status Discussed case with Dr. Villegas, nurses and patient. Cosigning senior Resident: Ciaran Zhou, agree with discharge summary Physical Examination: GENERAL APPEARANCE: Well developed, well nourished, alert and cooperative, HEAD: normocephalic. EYES: PERRL, EOMI. Fundi normal, vision is grossly intact. EARS: External auditory canals and tympanic membranes clear, hearing grossly intact. THROAT: Oral cavity and pharynx normal. No inflammation, swelling, exudate, or lesions. Teeth and gingiva in good general condition. NECK: Neck supple, non-tender without lymphadenopathy, masses or thyromegaly. CARDIAC: Normal S1 and S2. No S3, S4 or murmurs. Rhythm is regular. There is no peripheral edema, cyanosis or pallor. Extremities are warm and well perfused. Capillary refill is less than 2 seconds. No carotid bruits. LUNGS: Clear to auscultation and percussion without rales, rhonchi, wheezing or diminished breath sounds. ABDOMEN: Positive bowel sounds. Soft, nondistended, nontender. No guarding or rebound. No masses. MUSKULOSKELETAL: Adequately aligned spine. ROM intact spine and extremities. No joint erythema or tenderness. Normal muscular development. Normal gait. BACK: Examination of the spine reveals normal gait and posture, no spinal deformity, symmetry of spinal muscles, without tenderness, decreased range of motion or muscular spasm. LOWER EXTREMITY: Examination of both feet reveals all toes to be normal in size and symmetry, normal range of motion, normal sensation NEUROLOGICAL: CN II-XII intact. Strength and sensation symmetric and intact throughout. Reflexes 2+ throughout. Cerebellar testing normal. SKIN: Skin normal color, texture and turgor with no lesions or eruptions. Operations or Procedures CTA Chest with intravenous contrast INDICATION: sob COMPARISON: None TECHNIQUE: Multidetector spiral CTA of the chest was performed of the chest with intravenous contrast. PULMONARY ANGIOGRAPHY PROTOCOL was utilized using a bolus- tracking technique centered on the main pulmonary artery. Axial, coronal and sagittal multiplanar and MIP reformats were performed. CONTRAST: Type of contrast: Omni 350 Contrast injected: 70 ml Radiation dose : Chest: CTDI volume is 28 mGy. Dose-length product is 1050 mGy*cm The dose indicators for CT are the volume computed Tomography (CT) dose Index (CTDIvol) and the dose Length product (DLP), and are measured in units of mGy and mGy-cm, respectively. These indicators are not patient dose, but values generated from the CT scanner acquisition factors. The report includes radiation exposure data for exposures received during this examination. Findings: Pulmonary artery: Massive bilateral pulmonary emboli. Large volume of clot. Evidence of right heart strain. Lower neck: Normal thyroid. Lungs: Mild patchy ground-glass opacities in both lungs. Atelectasis and scarring in the lung bases. Heart/Vascular Structures: Normal heart size. No pericardial effusion. Lymph Nodes: No adenopathy Pleura: No pleural effusion or significant pneumothorax. Musculoskeletal: No acute osseous abnormality. Soft tissues: Normal. Upper abdomen: Moderate size sliding-type hiatal hernia. IMPRESSION: 1. Massive bilateral pulmonary emboli. Large clot burden. Evidence of right heart strain. Clinical correlation and continued follow-up is recommended. 2. Patchy ground-glass opacities in both lungs could represent subsegmental atelectasis. Atelectasis and scarring in the lung bases. Clinical correlation and continued follow-up is recommended. 3. Moderate size sliding-type hiatal hernia. Critical Result: Pumonary Emboli Findings conveyed to the referring physician by the Radiology technical support manager at 06/04/2025 10:39 AM, and acknowledged receipt and understanding of the findings. HS:Y ATED BY: CHEMA VILLEDA MD DICTATED DATE/TIME: 06/04/25 1041 Bilateral lower extremity venous duplex Clinical History: eval for dvt Comparison: None Findings: Duplex Doppler evaluation of the deep venous systems of both lower extremities from the common femoral veins to the popliteal veins including color Doppler and spectral/pulsed waveform analysis was performed. RIGHT SIDE: The common femoral vein demonstrates appropriate compressibility and waveform variability. There is compressibility/patency of the great saphenous vein at the proximal thigh. The femoral vein demonstrates appropriate compressibility and waveform variability. The deep femoral vein demonstrates appropriate compressibility and waveform variability. The popliteal vein demonstrates appropriate compressibility and waveform variability. DVT seen in right lower extremity peroneal veins LEFT SIDE: The common femoral vein demonstrates appropriate compressibility and waveform variability. There is compressibility/patency of the great saphenous vein at the proximal thigh. The femoral vein demonstrates appropriate compressibility and waveform variability. The deep femoral vein demonstrates appropriate compressibility and waveform variability. The popliteal vein demonstrates appropriate compressibility and waveform variability. There is normal compressibility at the tibioperoneal trunk. IMPRESSION: DVT seen in right lower extremity peroneal veins No DVT left lower extremity. END IMPRESSION: If clinical concern/symptoms persist or worsen, short-interval follow-up study is suggested. Critical Result: DVT Findings discussed with KENN Stanford , at 06/04/2025 02:22 PM, and acknowledged receipt and understanding of the findings. .. ATED BY: MIKE DESAI MD DICTATED DATE/TIME: 06/04/25 1422 Condition at Discharge: Stable Final Diagnosis/Problems List Pulmonary embolus Thrombectomy Acute respiratory distress Left lower extremity DVT Leukocytosis Elevated troponin Acute pulmonary embolism with large clot burden with right heart strain. RLE DVT. Pneumonia. Leukocytosis. Elevated troponin. Elevated BNP. HTN. GERD DM. HLD. Discharge Disposition: Home SNF Discharge Will this Physician continue t: No Discharge Instruct/Medications Diet: Cardiac 2g Na,low cholest Diet comment: Coumadin diet-avoid leafy foods. Activity: No Restrictions, As Tolerated Follow Up/Referral: PCP Follow-up with [facility] clinic on Sunday morning. Follow-up with Coumadin Clinic within 1 week. Medications: Warfarin dose as per pharmacy. Scheduled Warfarin Sodium (Warfarin Sodium), 1 TAB PO DAILY Scheduled PRN Acetaminophen (Acetaminophen), 650 MG PO Q6HP PRN Discharge Statement: "Patient was advised to return to the ER or call 911 if any headaches, dizziness, shortness of breath, chest pain, abdominal pain, bleeding, fevers, or worsening of medical condition. Patient was counseled about treatment plan, medications, possible side effects, patientverbalized understanding. All questions were answered to the best of my ability. This discharge took greater then 30 minutes in planning, reviewing documentation, counseling the patient, and discussing with other team members." ASSESSMENT ASSESSMENT Assessment Pulmonary embolism status post thrombectomy ARELY BLACKBURN RESIDENT Jun 15, 2025 18:07 CIARAN ZHOU RESIDENT Jun 16, 2025 06:35
--- NOTE | 2025-06-15 21:54 | DVHPN2 ---
Progress Note - Dictate Date Seen: Jun 15, 2025 Medical Necessity Reason Pt with a Central, PICC or Fol: No Subjective Patient was seen and evaluated in follow up. Patient has no new complaints at this time. Patient denies any cardiac symptoms. Patient is cardiac stable for discharge. Telemetry reviewed. vital signs Vital Sign Date Time Temp Pulse Resp B/P (MAP) Pulse Ox O2 Delivery O2 Flow Rate FiO2 06/15/25 14:36 97.7 74 18 98 06/15/25 13:32 128/71 (90) 06/15/25 08:00 Room Air* 0 21 Total Intake and Output 06/14/25 06/14/25 06/15/25 15:00 23:00 07:00 Intake Total 49.5 ml 300 ml 800 ml Balance 49.5 ml 300 ml 800 ml objective GENERAL: Alert and oriented x 3. No acute distress. EYES: PERRL, EOMI. Anicteric. HENT: Moist mucous membranes. LUNGS: Decreased breath sounds. CARDIOVASCULAR: Regular rate and rhythm. ABDOMEN: Soft, nontender and nondistended. EXTREMITIES: No edema. NEUROLOGIC: No focal neurological deficits. SKIN: Warm, dry. laboratory and microbiology Laboratory Tests 06/15/25 09:20 06/10/25 05:45 Test 06/10/25 05:45 Range/Units Serum Glucose 163 H 74-106 mg/dL Problem List Acute pulmonary embolism with large clot burden with right heart strain. RLE DVT. Pneumonia. Leukocytosis. Elevated troponin. Elevated BNP. HTN. DM. HLD. Assessment/Plan Continued all current supportive medical care. Morphine for pain management. GI prophylactics. Nitro SL. Additional plan as per the hospital course. Dietary Evaluation Review Comments: [facility]. [facility] 2. Educated pt and family that a Cardiac diet does nt allow much cheese, she has to choose beans and rice for her protein source, accommondate her likes and dislikes, Expected Outcomes/Goals: gradual wt loss Plan discussed with: Patient EVELYN MULLINS MD Jun 15, 2025 21:54
== END 2025-06-15 15:50 | disposition home or self-care (01) | DRG 163 ==
LOC: EDBD 09:16 → ER 09:16 → OVERFLOW 12:55 → TELE-EAST 18:57
PROVIDERS: ADMIT Student in an Organized Health Care Education/Training Program; ATTEND Student in an Organized Health Care Education/Training Program
PROC: B31T1ZZ Fluoroscopy of Left Pulmonary Artery using Low Osmolar Contrast (ICD-10-PCS; principal; 2025-06-04)
PROC: 02CQ3ZZ Extirpation of Matter from Right Pulmonary Artery, Percutaneous Approach (ICD-10-PCS; 2025-06-04)
PROC: 02CR3ZZ Extirpation of Matter from Left Pulmonary Artery, Percutaneous Approach (ICD-10-PCS; 2025-06-04)
DX: I26.99 Other pulmonary embolism without acute cor pulmonale (principal); J18.9 Pneumonia, unspecified organism; I82.401 Acute embolism and thrombosis of unspecified deep veins of right lower extremity; J98.11 Atelectasis; I10 Essential (primary) hypertension; E11.9 Type 2 diabetes mellitus without complications; E78.5 Hyperlipidemia, unspecified; K21.9 Gastro-esophageal reflux disease without esophagitis; R79.89 Other specified abnormal findings of blood chemistry; Z79.899 Other long term (current) drug therapy
CPT/HCPCS: 36415; 36600; 37184; 71045; 71275; 80053; 82040; 82565; 82805; 82962; 83735; 83880; 84484; 85025; 85610; 85730; 93005; 93306; 93970; 97110; 97116; 97163; 97530; 99152; C1769; C1894; G0378; J2250; Q9967

== ENCOUNTER → 2025-06-26 | Outpatient (CLI) | payer BC ==
[~2025-06-26] MED LIST: ACET-1882 PO; WARF-66 PO
[2025-06-26 12:06] LABS: INR 2.09 (0.9-1.15); Prothrombin Time 20.6 sec (9.3-11.8)
== END | disposition home or self-care (01) ==
LOC: LAB 11:12
PROVIDERS: ATTEND Student in an Organized Health Care Education/Training Program
DX: R79.1 Abnormal coagulation profile (principal); Z86.711 Personal history of pulmonary embolism
CPT/HCPCS: 36415; 85610